=== PATIENT | female | born 1960 | race Caucasian/White ===

== ENCOUNTER 2017-04-11 10:01 | Outpatient (CLI) | payer OTHER, MEDICARE ==
[2017-04-11 18:11] LABS: BASOPHILS % (AUTO) 0.8 %; EOSINOPHILS # (AUTO) 0.2 10^3/uL (0.0-0.7); EOSINOPHILS % (AUTO) 4.3 %; HCT - HEMATOCRIT 37.4 % (37.0-47.0); HGB - HEMOGLOBIN 12.7 g/dL (12.0-16.0); LYMPHOCYTES # (AUTO) 0.5 10^3/uL (1.5-3.5); LYMPHOCYTES % (AUTO) 12.1 %; MEAN CORPUSCULAR HEMOGLOBIN 32.1 pg (27.0-31.0); MEAN CORPUSCULAR HGB CONC 33.9 g/dL (32.0-36.0); MEAN CORPUSCULAR VOLUME 94.7 fL (81.0-99.0); MEAN PLATELET VOLUME 7.8 fL (7.9-10.8); MONOCYTES # (AUTO) 0.5 10^3/uL (0.0-1.0); MONOCYTES % (AUTO) 11.3 %; NEUTROPHILS % (AUTO) 71.5 %; RED BLOOD COUNT 3.95 10^6/uL (4.20-5.40); RED CELL DISTRIBUTION WIDTH 13.4 % (12.0-15.0); UNCORRECTED WHITE BLOOD COUNT 4.1 x10^3/uL; WHITE BLOOD COUNT 4.1 x10^3/uL (4.8-10.8)
[2017-04-11 18:42] LABS: BILIRUBIN,TOTAL 0.5 mg/dL (0.2-1.0); CALCIUM 10.1 mg/dL (8.5-10.3); CREATININE 0.7 mg/dL (0.4-1.0); POTASSIUM 3.7 mmol/L (3.5-5.0); TOTAL PROTEIN 7.2 g/dL (6.7-8.2)
[2017-04-11 18:49] LABS: TOTAL T3 0.99 ng/mL (0.87-1.78)
[2017-04-11 19:01] LABS: THYROID STIMULATING HORMONE 2.26 uIU/mL (0.34-5.60)
== END 2017-04-11 10:02 | disposition home or self-care (01) ==
LOC: LAB.S 10:01
PROVIDERS: ATTEND Registered Nurse
DX: F43.23 Adjustment disorder with mixed anxiety and depressed mood (principal)
CPT/HCPCS: 36415; 80053; 82306; 82607; 84436; 84439; 84443; 84480; 84481; 84482; 85025

== ENCOUNTER 2018-01-05 12:11 | Outpatient (CLI) | payer MEDICARE, OTHER ==
--- NOTE | 2018-01-05 17:39 | XRAY Report ---
CHEST TWO VIEWS: 01/05/2018 HISTORY: Cough. COMPARISON: 06/06/2015 FINDINGS: The heart size is normal. The lungs are clear. There is no pleural fluid or pneumothorax. Surgical clips left upper abdomen. Mild thoracolumbar junction dextroscoliosis. IMPRESSION: CLEAR LUNGS. NO ACUTE FINDINGS COMPARED WITH 06/06/2015. TD: 01/05/2018 16:10
== END 2018-01-05 12:12 | disposition home or self-care (01) ==
LOC: DI 12:11
PROVIDERS: ATTEND Nurse Practitioner Family
DX: R05 Cough (principal)
CPT/HCPCS: 71046

== ENCOUNTER 2018-10-26 10:47 | Outpatient (CLI) | payer MEDICARE, OTHER ==
--- NOTE | 2018-10-26 13:05 | Mammography Report ---
Reason: BREAST LUMP IN LOWER INNER QUADRANT Procedure Date: 10/26/2018 Accession Number: [id number] / [id number] Procedure: CHELITA - Diagnostic Dig Bilat CPT Code: FULL RESULT: EXAM: Diagnostic Dig Bilat DATE: 10/26/2018 12:06 PM CLINICAL HISTORY: Breast lump in the lower inner quadrant of the right breast. Diagnostic examination. TECHNIQUE: Bilateral CC, laterally exaggerated CC, MLO and ML views are obtained. COMPARISON: 07/23/2015 through 04/22/2011. FINDINGS: The breasts demonstrate extremely dense parenchyma bilaterally, limiting the sensitivity of mammography. The area marked as palpable is partially included on the right CC view but not seen on other projections and therefore insufficiently evaluated by mammography. Additional imaging by focused right breast ultrasound is needed. No suspicious calcifications, mass or architectural distortion is identified. IMPRESSION: Incomplete examination. RECOMMENDATION: Focused right breast ultrasound for completion of the diagnostic workup of the palpable right breast finding. BIRADS CATEGORY 0 STANDARD QUALIFYING STATEMENTS: 1. This examination was not reviewed with the aid of Computer-Aided Detection (CAD). 2. A negative or benign imaging report should not delay biopsy if clinically suspicious findings are present. Consider surgical consultation if warrented. More than 5% of cancers are not identified by imaging. 3. Dense breasts may obscure an underlying neoplasm. 4. This examination was reviewed with the aid of 3D imaging (tomography).
== END 2018-10-26 10:48 | disposition home or self-care (01) ==
LOC: DI 10:47
PROVIDERS: ATTEND Internal Medicine
DX: N63.14 Unspecified lump in the right breast, lower inner quadrant (principal)
CPT/HCPCS: 77066

== ENCOUNTER 2018-11-21 10:48 | Outpatient (CLI) | payer MEDICARE, OTHER ==
--- NOTE | 2018-11-21 14:24 | Ultrasound Report ---
Reason: LUMP OF RIGHT BREAST Procedure Date: 11/21/2018 Accession Number: [id number] / [id number] Procedure: US - Breast Unilateral Limited CPT Code: FULL RESULT: EXAM: Breast Unilateral Limited DATE: 11/21/2018 11:20 AM CLINICAL HISTORY: LUMP OF RIGHT BREAST. Completion of the diagnostic workup. COMPARISON: 10/26/2018. TECHNIQUE: Targeted ultrasound was performed of the right breast in the area of clinical concern at 3:30 o'clock and 7 cm distance from the nipple. Color Doppler was employed as appropriate. FINDINGS: Normal breast tissue is identified with prominent underlying musculoskeletal chest wall 1 cm deep to the palpable area. No suspicious collection or mass is identified. IMPRESSION: Benign findings RECOMMENDATION: Recommend routine annual Screening mammography unless otherwise clinically indicated. BIRADS CATEGORY 2: Benign findings RADIA
== END 2018-11-21 10:49 | disposition home or self-care (01) ==
LOC: DI 10:48
PROVIDERS: ATTEND Internal Medicine
DX: N63.10 Unspecified lump in the right breast, unspecified quadrant (principal)
CPT/HCPCS: 76642

== ENCOUNTER 2019-11-15 10:05 | Outpatient (CLI) | payer MEDICARE, OTHER ==
--- NOTE | 2019-11-15 10:47 | XRAY Report ---
Reason: DYSPNEA ON EXCERTION Procedure Date: 11/15/2019 Accession Number: [id number] / [id number] Procedure: XR - Chest 2 View X-Ray CPT Code: 88323 Final Report FULL RESULT: EXAM: CHEST RADIOGRAPHY EXAM DATE: 11/15/2019 10:15 AM. CLINICAL HISTORY: DYSPNEA ON EXERTION. COMPARISON: CHEST 2 VIEW 01/05/2018 12:51 PM. TECHNIQUE: 2 views. FINDINGS: Lungs/Pleura: No focal opacities evident. No pleural effusion. No pneumothorax. Lungs are well expanded. Mediastinum: Heart and mediastinal contours are unremarkable. Other: None. IMPRESSION: No acute intrathoracic plain film abnormality. RADIA
== END 2019-11-15 10:06 | disposition home or self-care (01) ==
LOC: DI 10:05
PROVIDERS: ATTEND Internal Medicine
DX: R06.09 Other forms of dyspnea (principal)
CPT/HCPCS: 71046

== ENCOUNTER 2019-11-21 11:35 | Outpatient (CLI) | payer MEDICARE, OTHER | END 2019-11-21 11:36 | disposition home or self-care (01) | LOC: LAB 11:35 | PROVIDERS: ATTEND Internal Medicine | DX: R06.01 Orthopnea (principal); Z82.49 Family history of ischemic heart disease and other diseases of the circulatory system; R06.09 Other forms of dyspnea | CPT/HCPCS: 36415; 83880; 85379 ==

== ENCOUNTER 2020-06-19 11:42 | Outpatient (CLI) | payer MEDICARE, OTHER ==
[2020-06-19 14:58] LABS: BASOPHILS % (AUTO) 0.9 %; EOSINOPHILS # (AUTO) 0.2 10^3/uL (0.0-0.7); EOSINOPHILS % (AUTO) 6.1 %; HGB - HEMOGLOBIN 11.9 g/dL (12.0-16.0); LYMPHOCYTES # (AUTO) 0.6 10^3/uL (1.5-3.5); LYMPHOCYTES % (AUTO) 18.3 %; MEAN CORPUSCULAR HEMOGLOBIN 31.1 pg (27.0-31.0); MEAN CORPUSCULAR HGB CONC 31.9 g/dL (32.0-36.0); MEAN CORPUSCULAR VOLUME 97.4 fL (81.0-99.0); MEAN PLATELET VOLUME 9.1 fL (7.9-10.8); MONOCYTES # (AUTO) 0.5 10^3/uL (0.0-1.0); MONOCYTES % (AUTO) 14.3 %; NEUTROPHILS % (AUTO) 60.1 %; PLT - PLATELET COUNT 382 10^3/uL (130-450); RED BLOOD COUNT 3.83 10^6/uL (4.20-5.40); RED CELL DISTRIBUTION WIDTH 13.4 % (12.0-15.0); WHITE BLOOD COUNT 3.3 x10^3/uL (4.8-10.8)
[2020-06-19 15:17] LABS: BILIRUBIN,URINE NEGATIVE (NEGATIVE); GLUCOSE, URINE (UA) NEGATIVE (NEGATIVE); KETONES,URINE (UA) NEGATIVE (NEGATIVE); LEUKOCYTE ESTERASE, URINE NEGATIVE (NEGATIVE); NITRITE,URINE NEGATIVE (NEGATIVE); OCCULT BLOOD,URINE NEGATIVE (NEGATIVE); PROTEIN,URINE NEGATIVE (NEGATIVE); UROBILINOGEN,URINE 0.2 (NORMAL) E.U./dL (NORMAL)
[2020-06-19 15:19] LABS: CLARITY,URINE CLEAR (CLEAR)
[2020-06-19 15:38] LABS: ALBUMIN 4.1 g/dL (3.2-5.5); ALBUMIN/GLOBULIN RATIO 1.9 (1.0-2.2); ALKALINE PHOSPHATASE 24 IU/L (42-121); ALT ALANINE AMINOTRANSFERASE 39 IU/L (10-60); AST ASPARTATE AMINOTRANSFERASE 29 IU/L (10-42); BILIRUBIN,TOTAL 0.5 mg/dL (0.2-1.0); BUN - BLOOD UREA NITROGEN 16 mg/dL (6-20); CALCIUM 8.9 mg/dL (8.5-10.3); CARBON DIOXIDE - CO2 30 mmol/L (21-32); CHLORIDE 101 mmol/L (101-111); CHOL/HDL RATIO 3.1 (<4.4); CHOLESTEROL 223 mg/dL; CREATININE 0.7 mg/dL (0.4-1.0); GLUCOSE 71 mg/dL (70-100); HDL CHOLESTEROL 72 mg/dL; LDL CHOLESTEROL,CALCULATED 130 mg/dL; LDL/HDL RATIO 1.8 (<4.4); SODIUM 138 mmol/L (135-145); TOTAL PROTEIN 6.3 g/dL (6.7-8.2); VLDL CHOLESTEROL 21 mg/dL
[2020-06-19 15:42] LABS: BACTERIA,URINE Few /HPF (None Seen); RBC,URINE None Seen /HPF (0-5); SQUAMOUS EPITHELIAL CELL,UR MANY Squamous (<= Few)
== END 2020-06-19 11:43 | disposition home or self-care (01) ==
LOC: LAB.S 11:42
PROVIDERS: ATTEND Nurse Practitioner Psychiatric/Mental Health
DX: F39 Unspecified mood [affective] disorder (principal); Z79.899 Other long term (current) drug therapy
CPT/HCPCS: 36415; 80053; 80061; 81001; 83721; 84443; 85025

== ENCOUNTER 2021-02-06 11:55 | Outpatient (CLI) | payer MEDICARE, OTHER ==
[2021-02-10 12:47] LABS: IMMUNOGLOBULIN A 85 mg/dL (47-310); IMMUNOGLOBULIN G 558 mg/dL (600-1640); IMMUNOGLOBULIN M 32 mg/dL (50-300)
[2021-02-11 13:37] LABS: MYCOPLASMA PNEUMONIAE IGG 1.03; MYCOPLASMA PNEUMONIAE IGM 36 U/mL
[2021-02-13 18:01] LABS: 18 KD (IGG) BAND NON-REACTIVE; 23 KD (IGG) BAND NON-REACTIVE; 23 KD (IGM) BLOT NON-REACTIVE; 28 KD (IGG) BAND NON-REACTIVE; 30 KD (IGG) BAND NON-REACTIVE; 39 KD (IGG) BAND NON-REACTIVE; 39 KD (IGM) BLOT NON-REACTIVE; 41 KD (IGG) BAND NON-REACTIVE; 41 KD (IGM) BLOT NON-REACTIVE; 45 KD (IGG) BAND NON-REACTIVE; 58 KD (IGG) BAND NON-REACTIVE; 66 KD (IGG) BAND NON-REACTIVE; 93 KD (IGG) BAND NON-REACTIVE
== END 2021-02-06 11:56 | disposition home or self-care (01) ==
LOC: LAB.S 11:55
PROVIDERS: ATTEND Family Medicine
DX: F41.9 Anxiety disorder, unspecified (principal); G89.29 Other chronic pain; F33.9 Major depressive disorder, recurrent, unspecified; G35 Multiple sclerosis; M48.02 Spinal stenosis, cervical region; G47.9 Sleep disorder, unspecified; M99.01 Segmental and somatic dysfunction of cervical region; Z77.120 Contact with and (suspected) exposure to mold (toxic); R09.82 Postnasal drip; J30.2 Other seasonal allergic rhinitis; I10 Essential (primary) hypertension
CPT/HCPCS: 36415; 81599; 82784; 82785; 83520; 86160; 86611; 86617; 86618; 86631; 86632; 86663; 86664; 86665; 86666; 86738; 86753; 86777; 86778; 86790

== ENCOUNTER 2021-09-18 12:39 | Outpatient (CLI) | payer MEDICARE, OTHER ==
--- NOTE | 2021-09-18 16:17 | DEXA Report ---
PROCEDURE: Dexa Spine and/or Hip INDICATIONS: POST MENOPAUSAL TECHNIQUE: Dual energy x-ray absorptiometry (DXA) was performed on a [employer] System. Regions measur ed are the AP Spine, femoral neck, and if needed forearm. COMPARISON: None. FINDINGS: Lumbar Spine: Bone Mineral Density 0.889 g/cm/cm,T score -2.4, osteopenia Left Hip: Bone Mineral Density 0.552 g/cm/cm,T score -3.6, osteoporosis Left Femoral Neck: Bone Mineral Density 0.636 g/cm/cm, T score -2.9, osteoporosis (T score greater or equal to -1.0: NORMAL) (T score from -1.1 to -2.4: OSTEOPENIA) (T score less than or equal to -2.5 to: OSTEOPOROSIS) Impression: Decreased bone mineral density within the osteoporotic range at the left hip and left fem oral neck and within the osteopenic range at the lumbar spine. Patients with diagnosis of osteoporosis or osteopenia should have regular bone mineral density assess ment. For those eligible for Medicare, routine testing is allowed once every 2 years. Testing frequ ency can be increased for patients who have rapidly progressing disease or for those who are receivin g medical therapy to restore bone mass. Reviewed by: Tres Carpio MD on 09/18/2021 4:15 PM PST Approved by: Tres Carpio MD on 09/18/2021 4:15 PM PST Station ID: [id number]
== END 2021-09-18 12:40 | disposition home or self-care (01) ==
LOC: DI 12:39
PROVIDERS: ATTEND Internal Medicine
DX: M81.0 Age-related osteoporosis without current pathological fracture (principal); Z78.0 Asymptomatic menopausal state

== ENCOUNTER 2021-11-14 11:01 | Emergency (ER) | payer MEDICARE, OTHER ==
--- OUTSIDE RECORDS SUMMARY | 2021-11-14 11:22 | EXTERNAL MEDICAL SUMMARY RPT | Continuity of Care Document ---
:1960 Author Organization [facility] Address [address] [place] [address] Phone Allergies No information. Encounters No information. Medications No information. Problems date description facility [id number] Shortness of Breath [facility] [id number] Chest Pain [facility] Results No information.
[2021-11-14 11:39] LABS: BASOPHILS % (AUTO) 0.3 %; EOSINOPHILS # (AUTO) 0.1 10^3/uL (0.0-0.7); EOSINOPHILS % (AUTO) 1.2 %; HCT - HEMATOCRIT 42.4 % (37.0-47.0); HGB - HEMOGLOBIN 14.4 g/dL (12.0-16.0); LYMPHOCYTES # (AUTO) 1.2 10^3/uL (1.5-3.5); MEAN CORPUSCULAR HEMOGLOBIN 31.9 pg (27.0-31.0); MEAN CORPUSCULAR VOLUME 93.8 fL (81.0-99.0); MEAN PLATELET VOLUME 8.7 fL (7.9-10.8); MONOCYTES # (AUTO) 0.9 10^3/uL (0.0-1.0); MONOCYTES % (AUTO) 9.7 %; NEUTROPHILS # (AUTO) 7.4 10^3/uL (1.5-6.6); NEUTROPHILS % (AUTO) 76.3 %; PLT - PLATELET COUNT 416 10^3/uL (130-450); RED BLOOD COUNT 4.52 10^6/uL (4.20-5.40); RED CELL DISTRIBUTION WIDTH 13.1 % (12.0-15.0); WHITE BLOOD COUNT 9.7 x10^3/uL (4.8-10.8)
--- NOTE | 2021-11-14 11:42 | XRAY Report ---
PROCEDURE: Chest 1 View X-Ray INDICATIONS: Chest pain TECHNIQUE: One view of the chest was acquired. COMPARISON: 03/16/2020, 1116, 01/05/2018 FINDINGS: Surgical changes and devices: Left upper quadrant postoperative clips are seen. Lungs and pleura: On the semiupright images, no large pneumothorax or large pleural effusions can be seen. No focal infiltrates are seen. Lungs are clear, yet hyperexpanded. Mediastinum: Mediastinal contours appear normal. Heart size is normal. Bones and chest wall: No suspicious bony lesions. Age-appropriate degenerative changes are seen. Overlying soft tissues appear unremarkable. IMPRESSION: Hyperexpanded lungs are seen, without an acute cardiopulmonary abnormality seen. Postoperative and degenerative changes are seen. Reviewed by: Javed Zarate MD on 11/14/2021 10:41 AM [facility] Approved by: Javed Zarate MD on 11/14/2021 10:41 AM [facility] Station ID: [id number]
[2021-11-14 12:19] LABS: ALBUMIN 4.9 g/dL (3.2-5.5); ALBUMIN/GLOBULIN RATIO 1.4 (1.0-2.2); BILIRUBIN,TOTAL 0.5 mg/dL (0.2-1.0); CALCIUM 10.2 mg/dL (8.5-10.3); CREATININE 0.8 mg/dL (0.4-1.0); POTASSIUM 4.4 mmol/L (3.5-5.0); TOTAL PROTEIN 8.3 g/dL (6.7-8.2)
[2021-11-14] MEDS ORDERED: HYDROmorphone 1 MG/ML CARPUJECT IVP STA (12:24)
--- NOTE | 2021-11-14 12:24 | ED Physician Documentation ---
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 Previously was maintained on narcotics but weaned herself off about a month ago but pain is now uncontrolled, more neck than chest. It is similar to but worse than her usual s ann marie stenosis pain. She has been evaluated by a spinal surgeon in the past who declined to operate because of her underlying multiple sclerosis. Review of Systems Constitutional: denies: Fever, Chills Cardiac: reports: Chest pain / pressure (From her Howell's esophagus and nutcracker esophagus). denies: Palpitations Respiratory: denies: Dyspnea, Cough PD PAST MEDICAL HISTORY - Past Medical History Past Medical History: Yes Cardiovascular: None Respiratory: Asthma Endocrine/Autoimmune: None GI: GERD : None HEENT: Other Psych: None Musculoskeletal: Chronic back pain Derm: None - Past Surgical History Past Surgical History: Yes Ortho: Arthroscopic surgery - Present Medications Home Medications: Ambulatory Orders Medication Instructions Recorded Confirmed DULoxetine [Cymbalta] 60 mg PO DAILY 07/31/13 07/31/13 Estradiol 0.05 mg Patch [Vivelle] 1 each TOP 07/31/13 07/31/13 Fingolimod HCl [Gilenya] 0.5 mg PO DAILY 07/31/13 07/31/13 Lorazepam 0.5 mg PO HS 07/31/13 07/31/13 Pregabalin [Lyrica] 25 mg PO BID 07/31/13 07/31/13 Tizanidine HCl 4 mg PO BID 07/31/13 07/31/13 fentaNYL 25 MCG PATCH [Duragesic] 25 mcg TOP 07/31/13 07/31/13 oxyCODONE [Roxicodone] 5 mg PO Q6-8H PRN 07/31/13 07/31/13 HYDROcod/ACETAM 5/325 [Geneva 5/325] 1 - 2 tab PO Q6H PRN #20 tablet 11/14/21 fentaNYL 50 MCG PATCH [Duragesic 50 mcg TOP Q3D #3 patch 11/14/21 50mcg patch] - Allergies Allergies/Adverse Reactions: Allergies Allergy/AdvReac Type Severity Reaction Status Date / Time latex Allergy Severe Hives Verified 11/14/21 11:11 Sulfa (Sulfonamide Allergy Severe Hives Verified 11/14/21 11:11 Antibiotics) - Social History Does the pt smoke?: Yes Smoking Status: Current every day smoker Does the pt drink ETOH?: Yes Does the pt have substance abuse?: No - Immunizations Immunizations are current?: Yes PD ED PE NORMAL - Vitals Vital signs reviewed: Yes - General General: Alert and oriented X 3, No acute distress - HEENT HEENT: PERRL, EOMI - Neck Neck: Supple, no meningeal sign, No bony TTP - Cardiac Cardiac: RRR, No murmur - Respiratory Respiratory: No respiratory distress, Clear bilaterally - Abdomen Abdomen: Non tender - Back Back: No CVA TTP, No spinal TTP - Derm Derm: Normal color, Warm and dry - Extremities Extremities: No edema, No calf tenderness / cord - Neuro Neuro: Alert and oriented X 3, Normal speech - Psych Psych: Normal mood, Normal affect Results - Vitals Vitals: Vital Signs - 24 hr 11/14/21 11/14/21 11/14/21 11:11 11:27 11:45 Temperature 37.0 C 36.5 C Heart Rate 122 H 122 H 93 Respiratory 18 18 16 Rate Blood Pressure 156/114 H 156/114 H 147/89 H O2 Saturation 100 100 100 11/14/21 12:15 Temperature Heart Rate 105 H Respiratory 18 Rate Blood Pressure 132/67 H O2 Saturation 100 Oxygen O2 Source Room air - EKG (time done) 1119 Rate: Rate (enter#) (120) Rhythm: Sinus tachycardia [place]: Normal Intervals: Normal [place] QRS: Normal Ischemia: Non specific changes. No: ST elevation c/w ischemia, ST depression - Labs Labs: Laboratory Tests 11/14/21 11/14/21 11/14/21 11:33 11:33 11:33 WBC 9.7 RBC 4.52 Hgb 14.4 Hct 42.4 MCV 93.8 MCH 31.9 H MCHC 34.0 RDW 13.1 Plt Count 416 MPV 8.7 Neut # (Auto) 7.4 H Lymph # (Auto) 1.2 L Henry # (Auto) 0.9 Eos # (Auto) 0.1 Baso # (Auto) 0.0 Absolute Nucleated RBC 0.00 Nucleated RBC % 0.0 Sodium 139 Potassium 4.4 Chloride 100 L Carbon Dioxide 24 Anion Gap 15.0 H BUN 17 Creatinine 0.8 Estimated GFR (MDRD) 73 L Glucose 145 H Calcium 10.2 Total Bilirubin 0.5 AST 46 H ALT 63 H Alkaline Phosphatase 43 Troponin I High Sens 4.7 Total Protein 8.3 H Albumin 4.9 Globulin 3.4 Albumin/Globulin Ratio 1.4 Lipase 73 H PD MEDICAL DECISION MAKING - ED course ED course: 61-year-old woman with an exacerbation of chronic pain and needs some relief until she can see her doctor on Tuesday. Usual life-threatening differentials for neck and chest pain were considered but she is clear that this is an exacerbation of her chronic pain and there is no finding of ischemia or widened mediastinum etc. to suggest something worse. Departure - Departure Disposition: Home, Self Care Clinical Impression: Chronic neck pain, Multiple sclerosis, Nutcracker esophagus, Spinal stenosis Condition: Good Record reviewed to determine appropriate education?: Yes Instructions: ED Chronic Pain Management Prescriptions: fentaNYL 50 MCG PATCH [Duragesic 50mcg patch] 50 mcg TOP Q3D #3 patch HYDROcod/ACETAM 5/325 [Geneva 5/325] 1 - 2 tab PO Q6H PRN #20 tablet PRN Reason: Pain Comments: I sent your prescriptions electronically to the [facility] pharmacy at the corner of [address] here in [place]. Follow-up with your doctor on Tuesday for further evaluation and treatment. Return if worse. I am prescribing a short course of narcotic pain medication for you. These are potentially dangerous and addictive medications that should be used carefully. These medications may constipate you. Take an zzkh-bcx-rxntjfo stool softener (docusate) twice daily with plenty of water while taking these medications. If you go 24 hours without a bowel movement, take pvys-wtx-vmnkjvr miralax, per package instructions. Do not drink or drive while taking these medications. If you received narcotic or sedating medications while in the emergency department, do not drive for 24 hours. Store this medication in a safe, secure place and out of reach of children. It is a violation of federal law to give or sell this medication to another person or to use in a manner other than prescribed. The ED will not refill narcotic prescriptions, including prescriptions lost or stolen. To dispose of unwanted medications: 1. [facility] at [address] in [place] has a medication drop box. They accept prescription medications (in pill form) Tuesday through Tuesday 9:00 a.m. to 5:00 p.m. 2. The [facility] accepts prescription medications (in pill form only) for disposal year round. Call for more information. 3. Contact the [facility] for the next [facility] sponsored prescription drug collection event. , [phone], or [phone]; Note that many narcotic pain relievers also contain Tylenol/acetaminophen. Please ensure that your total dose of acetaminophen from all sources does not exceed 3 g (3000 mg) per day.
[2021-11-14 12:35] VITALS: BP 128/107
== END 2021-11-14 13:52 | disposition home or self-care (01) ==
LOC: ED 11:01
DX: K22.4 Dyskinesia of esophagus (principal); M48.02 Spinal stenosis, cervical region; G35 Multiple sclerosis; F17.200 Nicotine dependence, unspecified, uncomplicated
CPT/HCPCS: 36415; 71045; 80053; 83690; 84484; 85025; 93005; 96374; 99283; 99284; J1170

== ENCOUNTER 2022-04-27 10:28 | Emergency (ER) | payer MEDICARE, OTHER ==
--- NOTE | 2022-04-27 11:13 | XRAY Report ---
PROCEDURE: Chest 1 View X-Ray INDICATIONS: Chest Pain TECHNIQUE: One view of the chest was acquired. COMPARISON: 11/14/2019 to. FINDINGS: Surgical changes and devices: Surgical clips are noted in left upper quadrant abdomen.. Lungs and pleura: No pleural effusions or pneumothorax. Lungs are clear. Mediastinum: Mediastinal contours appear normal. Heart size is normal. Bones and chest wall: No suspicious bony lesions. Overlying soft tissues appear unremarkable. IMPRESSION: No acute cardiopulmonary pathology. Reviewed by: Tomy Barton MD on 04/27/2022 11:12 AM PDT Approved by: Tomy Barton MD on 04/27/2022 11:12 AM PDT Station ID: [id number]
[2022-04-27 11:20] LABS: BASOPHILS % (AUTO) 0.3 %; EOSINOPHILS # (AUTO) 0.2 10^3/uL (0.0-0.7); EOSINOPHILS % (AUTO) 2.2 %; HCT - HEMATOCRIT 46.1 % (37.0-47.0); HGB - HEMOGLOBIN 15.7 g/dL (12.0-16.0); LYMPHOCYTES # (AUTO) 1.3 10^3/uL (1.5-3.5); LYMPHOCYTES % (AUTO) 17.4 %; MEAN CORPUSCULAR HEMOGLOBIN 31.5 pg (27.0-31.0); MEAN CORPUSCULAR HGB CONC 34.1 g/dL (32.0-36.0); MEAN CORPUSCULAR VOLUME 92.4 fL (81.0-99.0); MEAN PLATELET VOLUME 8.4 fL (7.9-10.8); MONOCYTES # (AUTO) 0.7 10^3/uL (0.0-1.0); MONOCYTES % (AUTO) 8.6 %; NEUTROPHILS # (AUTO) 5.5 10^3/uL (1.5-6.6); NEUTROPHILS % (AUTO) 71.1 %; PLT - PLATELET COUNT 488 10^3/uL (130-450); RED BLOOD COUNT 4.99 10^6/uL (4.20-5.40); RED CELL DISTRIBUTION WIDTH 13.4 % (12.0-15.0); WHITE BLOOD COUNT 7.7 x10^3/uL (4.8-10.8)
[2022-04-27 11:34] LABS: ALBUMIN/GLOBULIN RATIO 1.4 (1.0-2.2); BILIRUBIN,TOTAL 0.6 mg/dL (0.2-1.0); CALCIUM 10.3 mg/dL (8.5-10.3); CREATININE 0.7 mg/dL (0.4-1.0); POTASSIUM 3.9 mmol/L (3.5-5.0); TOTAL PROTEIN 8.7 g/dL (6.7-8.2)
[2022-04-27] MEDS ORDERED: IPRATROPIUM/ALBUTEROL 3 ML NEB INH STA (11:37)
[2022-04-27] MEDS ORDERED: SODIUM CHLORIDE 0.9% 1,000 ML IV STA (11:37)
[2022-04-27] MEDS ORDERED: HYDROmorphone 1 MG/ML CARPUJECT IVP STA (11:37)
[2022-04-27] MEDS ORDERED: KETOROLAC 15 MG/ML VIAL IVP STA (11:38)
--- NOTE | 2022-04-27 11:39 | ED Physician Documentation ---
PD HPI DYSPNEA - Stated complaint Stated Complaint: CHEST PX/SOA - Chief complaint Chief Complaint: Cardiac - History obtained from History obtained from: Patient - Additional information Additional information: 62-year-old woman with history of failed Cisco fundoplication's and multiple sclerosis. She has a history of remote tobacco abuse and still smokes only very occasionally, a few times a year. She presents with an upper respiratory infection having started about a week ago with worsening cough productive of foamy white mucus, chest pain especially with coughing, low-grade fevers up to 1 01. She is short of breath and not sleeping well. She denies pedal edema or calf pain. She has no formal diagnosis of COPD or emphysema. Her granddaughter was sick with a respiratory illness recently. She has had several negative COVID tests at home. Review of Systems Ten Systems: 10 systems reviewed and negative Constitutional: reports: Fever, Chills, Fatigue Nose: reports: Rhinorrhea / runny nose Cardiac: reports: Chest pain / pressure Respiratory: reports: Dyspnea, Cough PD PAST MEDICAL HISTORY - Past Medical History Cardiovascular: None Respiratory: Asthma Endocrine/Autoimmune: None GI: GERD : None HEENT: Other Psych: None Musculoskeletal: Chronic back pain Derm: None - Past Surgical History Past Surgical History: Yes Ortho: Arthroscopic surgery - Present Medications Home Medications: Ambulatory Orders Medication Instructions Recorded Confirmed DULoxetine [Cymbalta] 60 mg PO DAILY 07/31/13 07/31/13 Estradiol 0.05 mg Patch [Vivelle] 1 each TOP 07/31/13 07/31/13 Fingolimod HCl [Gilenya] 0.5 mg PO DAILY 07/31/13 07/31/13 Lorazepam 0.5 mg PO HS 07/31/13 07/31/13 Pregabalin [Lyrica] 25 mg PO BID 07/31/13 07/31/13 Tizanidine HCl 4 mg PO BID 07/31/13 07/31/13 fentaNYL 25 MCG PATCH [Duragesic] 25 mcg TOP 07/31/13 07/31/13 oxyCODONE [Roxicodone] 5 mg PO Q6-8H PRN 07/31/13 07/31/13 HYDROcod/ACETAM 5/325 [Kenmare 5/325] 1 - 2 tab PO Q6H PRN #20 tablet 11/14/21 fentaNYL 50 MCG PATCH [Duragesic 50 mcg TOP Q3D #3 patch 11/14/21 50mcg patch] Albuterol Sulf [Ventolin Hfa 1 - 2 puffs INH Q4HR PRN #1 gm 04/27/22 Inhaler] Benzonatate [Tessalon] 200 mg PO QID PRN #20 cap 04/27/22 Doxycycline Hyclate 100 mg PO BID #14 cap 04/27/22 HYDROcod/ACETAM 5/325 [Kenmare 5/325] 1 - 2 tab PO Q6H PRN #15 tablet 04/27/22 - Allergies Allergies/Adverse Reactions: Allergies Allergy/AdvReac Type Severity Reaction Status Date / Time latex Allergy Severe Hives Verified 04/27/22 10:47 Sulfa (Sulfonamide Allergy Severe Hives Verified 04/27/22 10:47 Antibiotics) - Social History Does the pt smoke?: Yes Smoking Status: Current every day smoker Does the pt drink ETOH?: Yes Does the pt have substance abuse?: No - Immunizations Immunizations are current?: Yes PD ED PE NORMAL - Vitals Vital signs reviewed: Yes - General General: Alert and oriented X 3, Other (She is thin) - HEENT HEENT: PERRL, EOMI - Neck Neck: Supple, no meningeal sign, No bony TTP - Cardiac Cardiac: No murmur, Other (Tachycardic but regular without murmur) - Respiratory Respiratory: Other (Diminished especially at the bases, mildly tachypneic but speaking in full sentences.) - Abdomen Abdomen: Non tender - Back Back: No CVA TTP, No spinal TTP - Derm Derm: Normal color, Warm and dry - Extremities Extremities: No edema, No calf tenderness / cord - Neuro Neuro: Alert and oriented X 3, Normal speech Results - Vitals Vitals: Vital Signs - 24 hr 04/27/22 04/27/22 04/27/22 10:41 10:47 11:17 Temperature 36.4 C L Heart Rate 121 H 124 H 113 H Respiratory 28 H 25 H 17 Rate Blood Pressure 122/83 H 197/98 H 176/93 H O2 Saturation 97 98 97 04/27/22 04/27/22 04/27/22 11:30 12:00 12:09 Temperature Heart Rate 116 H 114 H 118 H Respiratory 23 13 22 Rate Blood Pressure 176/93 H 165/106 H O2 Saturation 95 100 04/27/22 04/27/22 12:30 13:00 Temperature 36.5 C Heart Rate 117 H 100 Respiratory 20 20 Rate Blood Pressure 153/89 H 140/88 H O2 Saturation 97 98 Oxygen O2 Source Room air - EKG (time done) 1038 Rate: Rate (enter#) (123) Rhythm: Sinus tachycardia Alexander: Normal Intervals: Normal CT QRS: Normal Ischemia: Non specific changes. No: ST elevation c/w ischemia - Labs Labs: Laboratory Tests 04/27/22 04/27/22 04/27/22 11:06 11:08 11:08 WBC 7.7 RBC 4.99 Hgb 15.7 Hct 46.1 MCV 92.4 MCH 31.5 H MCHC 34.1 RDW 13.4 Plt Count 488 H MPV 8.4 Neut # (Auto) 5.5 Lymph # (Auto) 1.3 L Armstrong # (Auto) 0.7 Eos # (Auto) 0.2 Baso # (Auto) 0.0 Absolute Nucleated RBC 0.00 Nucleated RBC % 0.0 D-Dimer Sodium 139 Potassium 3.9 Chloride 101 Carbon Dioxide 25 Anion Gap 13.0 BUN 13 Creatinine 0.7 Estimated GFR (MDRD) 85 L Glucose 111 H Calcium 10.3 Total Bilirubin 0.6 AST 35 ALT 41 Alkaline Phosphatase 60 Troponin I High Sens Total Protein 8.7 H Albumin 5.0 Globulin 3.7 Albumin/Globulin Ratio 1.4 Lipase 45 Nasal Adenovirus (PCR) NOT DETECTED Nasal B. parapertussis DNA (PCR) NOT DETECTED Nasal Coronavir 229E PCR NOT DETECTED Nasal Coronavir HKU1 PCR NOT DETECTED Nasal Coronavir NL63 PCR NOT DETECTED Nasal Coronavir OC43 PCR NOT DETECTED Nasal Enterovir/Rhinovir PCR DETECTED A Nasal Influenza B PCR NOT DETECTED Nasal Influenza A PCR NOT DETECTED Nasal Parainfluen 1 PCR NOT DETECTED Nasal Parainfluen 2 PCR NOT DETECTED Nasal Parainfluen 3 PCR NOT DETECTED Nasal Parainfluen 4 PCR NOT DETECTED Nasal RSV (PCR) NOT DETECTED Nasal B.pertussis DNA PCR NOT DETECTED Nasal C.pneumoniae (PCR) NOT DETECTED Viraj Human Metapneumo PCR NOT DETECTED Nasal M.pneumoniae (PCR) NOT DETECTED Nasal SARS-CoV-2 (PCR) NOT DETECTED 04/27/22 04/27/22 11:08 11:20 WBC RBC Hgb Hct MCV MCH MCHC RDW Plt Count MPV Neut # (Auto) Lymph # (Auto) Armstrong # (Auto) Eos # (Auto) Baso # (Auto) Absolute Nucleated RBC Nucleated RBC % D-Dimer < 200.0 L Sodium Potassium Chloride Carbon Dioxide Anion Gap BUN Creatinine Estimated GFR (MDRD) Glucose Calcium Total Bilirubin AST ALT Alkaline Phosphatase Troponin I High Sens 3.9 Total Protein Albumin Globulin Albumin/Globulin Ratio Lipase Nasal Adenovirus (PCR) Nasal B. parapertussis DNA (PCR) Nasal Coronavir 229E PCR Nasal Coronavir HKU1 PCR Nasal Coronavir NL63 PCR Nasal Coronavir OC43 PCR Nasal Enterovir/Rhinovir PCR Nasal Influenza B PCR Nasal Influenza A PCR Nasal Parainfluen 1 PCR Nasal Parainfluen 2 PCR Nasal Parainfluen 3 PCR Nasal Parainfluen 4 PCR Nasal RSV (PCR) Nasal B.pertussis DNA PCR Nasal C.pneumoniae (PCR) Viraj Human Metapneumo PCR Nasal M.pneumoniae (PCR) Nasal SARS-CoV-2 (PCR) PD MEDICAL DECISION MAKING - ED course ED course: 62-year-old woman presents with bronchitis type illness, positive for rhinovirus. No formal diagnosis of COPD but her chest x-ray seems consistent with that to me given the hyperinflation albeit the radiologist felt it was fairly normal. She was feeling much better after symptomatic treatment here. Departure - Departure Disposition: 01 Home, Self Care Clinical Impression: Bronchitis, Rhinovirus, Dyspnea Condition: Good Record reviewed to determine appropriate education?: Yes Instructions: ED Bronchitis Asthmatic, ED Viral Syndrome Prescriptions: Albuterol Sulf [Ventolin Hfa Inhaler] 1 - 2 puffs INH Q4HR PRN #1 gm PRN Reason: Shortness Of Air/Wheezing Doxycycline Hyclate 100 mg PO BID #14 cap HYDROcod/ACETAM 5/325 [Kenmare 5/325] 1 - 2 tab PO Q6H PRN #15 tablet PRN Reason: Pain Benzonatate [Tessalon] 200 mg PO QID PRN #20 cap PRN Reason: Cough Comments: I sent your prescription electronically to the [facility] pharmacy at the corner of [address] here in [place]. As discussed, the only positive diagnostic test was a bio fire panel, which came up positive for enterovirus/rhinovirus. We did screening test for heart disease and blood clots which were negative. Return for new or worsening symptoms. Follow-up with your doctor in a week if not better. I am prescribing a short course of narcotic pain medication for you. These are potentially dangerous and addictive medications that should be used carefully. These medications may constipate you. Take an flke-muy-jcpowoj stool softener (docusate) twice daily with plenty of water while taking these medications. If you go 24 hours without a bowel movement, take bkbe-tdi-ypswiza miralax, per package instructions. Do not drink or drive while taking these medications. If you received narcotic or sedating medications while in the emergency department, do not drive for 24 hours. Store this medication in a safe, secure place and out of reach of children. It is a violation of federal law to give or sell this medication to another person or to use in a manner other than prescribed. The ED will not refill narcotic prescriptions, including prescriptions lost or stolen. To dispose of unwanted medications: 1. [facility] at [address] in [place] has a medication drop box. They accept prescription medications (in pill form) Tuesday through Tuesday 9:00 a.m. to 5:00 p.m. 2. The [facility] Police Department accepts prescription medications (in pill form only) for disposal year round. Call for more information. 3. Contact the [facility] for the next [facility] sponsored prescription drug collection event. , [phone], or [phone]; Note that many narcotic pain relievers also contain Tylenol/acetaminophen. Please ensure that your total dose of acetaminophen from all sources does not exceed 3 g (3000 mg) per day. Discharge Date/Time: 04/27/22 13:41
[2022-04-27] MEDS: DEXAMETHASONE 10 MG/ML VIAL IVP STA ×2 (12:09→12:10)
[2022-04-27 12:10] LABS: B. PARAPERTUSSIS- RESP PCR PAN NOT DETECTED; B. PERTUSSIS- RESP PCR PANEL NOT DETECTED; C. PNEUMONIAE- RESP PCR PANEL NOT DETECTED; CORONAVIRUS 229E-RESP PCR NOT DETECTED; CORONAVIRUS HKU1-RESP PCR NOT DETECTED; CORONAVIRUS NL63-RESP PCR NOT DETECTED; CORONAVIRUS OC43-RESP PCR NOT DETECTED; HUMAN METAPNEUMOVIRUS NOT DETECTED; INFLUENZA A- RESP PCR PANEL NOT DETECTED; INFLUENZA B - RESP PCR PANEL NOT DETECTED; M. PNEUMONIAE- RESP PCR PANEL NOT DETECTED; PARAINFLUENZA VIRUS 1 NOT DETECTED; PARAINFLUENZA VIRUS 2 NOT DETECTED; PARAINFLUENZA VIRUS 3 NOT DETECTED; PARAINFLUENZA VIRUS 4 NOT DETECTED; RHINOVIRUS/ENTEROVIRUS DETECTED; RSV- RESP PCR PANEL NOT DETECTED; SARS-CoV-2 -RESP PCR PANEL NOT DETECTED
[2022-04-27 13:40] VITALS: BP 140/88
== END 2022-04-27 13:41 | disposition home or self-care (01) ==
LOC: ED 10:28
DX: J20.6 Acute bronchitis due to rhinovirus (principal); F17.200 Nicotine dependence, unspecified, uncomplicated; Z20.822 Contact with and (suspected) exposure to COVID-19
CPT/HCPCS: 36415; 71045; 80053; 83690; 84484; 85025; 85379; 87633; 93005; 94640; 94664; 96374; 99284; J1170

== ENCOUNTER 2022-06-17 14:00 | Outpatient (CLI) | payer MEDICARE, OTHER ==
[2022-06-19 07:09] LABS: ADENOVIRUS F 40/41 Not Detected (Not Detected); ASTROVIRUS Not Detected (Not Detected); C DIFFICILE TOXIN A/B Not Detected (Not Detected); CAMPYLOBACTER Not Detected (Not Detected); CRYPTOSPORIDIUM Not Detected (Not Detected); CYCLOSPORA CAYETANENSIS Not Detected (Not Detected); ENTAMOEBA HISTOLYTICA Not Detected (Not Detected); ENTEROAGGREGATIVE E COLI Not Detected (Not Detected); ENTEROPATHOGENIC E COLI Not Detected (Not Detected); ENTEROTOXIGENIC E COLI Not Detected (Not Detected); GIARDIA LAMBLIA Not Detected (Not Detected); NOROVIRUS GI/GII Not Detected (Not Detected); PLESIOMONAS SHIGELLOIDES Not Detected (Not Detected); ROTAVIRUS A Not Detected (Not Detected); SALMONELLA Not Detected (Not Detected); SAPOVIRUS Not Detected (Not Detected); SHIGA-TOXIN-PRODUCING E COLI Not Detected (Not Detected); SHIGELLA/ENTEROINVASIVE E COLI Not Detected (Not Detected); VIBRIO Not Detected (Not Detected); VIBRIO CHOLERAE Not Detected (Not Detected); YERSINIA ENTEROCOLITICA Not Detected (Not Detected)
== END 2022-06-17 23:59 | disposition home or self-care (01) ==
LOC: LAB.R 14:00
PROVIDERS: ATTEND Internal Medicine Gastroenterology
DX: K52.9 Noninfective gastroenteritis and colitis, unspecified (principal); D84.821 Immunodeficiency due to drugs; G35 Multiple sclerosis; R53.83 Other fatigue
CPT/HCPCS: 36415; 80053; 81001; 81003; 85025; 87086; 87507

== ENCOUNTER 2024-01-27 07:00 | Outpatient (CLI) | payer MEDICARE, OTHER ==
--- NOTE | 2024-01-27 20:49 | XRAY Report ---
PROCEDURE: Chest 2V INDICATIONS: ACUTE COUGH TECHNIQUE: 2 views of the chest were acquired. COMPARISON: None. FINDINGS: Surgical changes and devices: Several surgical clips in the left upper quadrant of the abdomen. Lungs and pleura: Background of hyperlucency and coarse interstitial markings. Hazy left lower lung alveolar opacity. Pleural tethering. No significant pleural effusion or thorax. Mediastinum: Mediastinal contours appear normal. Heart size is normal. Bones and chest wall: No suspicious bony lesions. Overlying soft tissues appear unremarkable. IMPRESSION: Background emphysematous change. Left lower lobe findings suggesting small pneumonia. No pleural effusion. Reviewed by: Milla Howell MD on 01/27/2024 8:48 PM PDT Approved by: Milla Howell MD on 01/27/2024 8:48 PM PDT Station ID: [id number]
== END 2024-01-27 23:59 | disposition home or self-care (01) ==
LOC: DI.S 07:00
PROVIDERS: ATTEND Emergency Medicine
DX: R05.1 Acute cough (principal); R91.8 Other nonspecific abnormal finding of lung field

== ENCOUNTER 2024-03-16 09:59 | Outpatient (CLI) | payer MEDICARE, OTHER | END 2024-03-16 10:00 | disposition critical access hospital (66) | LOC: EMS 09:59 | DX: R06.02 Shortness of breath (principal); R07.1 Chest pain on breathing; M54.2 Cervicalgia; R50.9 Fever, unspecified; R06.2 Wheezing; R00.0 Tachycardia, unspecified | CPT/HCPCS: A0425; A0427 ==

== ENCOUNTER 2024-03-16 10:34 | Inpatient (IN) | payer MEDICARE, OTHER ==
--- NOTE | 2024-03-16 10:41 | ED Physician Documentation ---
PD HPI DYSPNEA - Stated complaint Stated Complaint: SOA - History obtained from History obtained from: Patient, EMS - Additional information Additional information: 64-year-old woman with chronic pain, multiple sclerosis and COPD presents with worsening shortness of breath over the last day. On arrival history is limited due to respiratory distress and patient states she wants to be intubated. She confirms that she is DNR but does want intubation. She has received albuterol prior to arrival and refuses steroids even with reassurance that she would be sedated noting that her "allergy" to steroids is agitation. PD PAST MEDICAL HISTORY - Past Medical History Cardiovascular: None Respiratory: Asthma Endocrine/Autoimmune: None GI: GERD : None HEENT: Other Psych: None Musculoskeletal: Chronic back pain Derm: None - Past Surgical History Past Surgical History: Yes Ortho: Arthroscopic surgery - Present Medications Home Medications: Ambulatory Orders Medication Instructions Recorded Confirmed DULoxetine [Cymbalta] 60 mg PO DAILY 07/31/13 07/31/13 Estradiol 0.05 mg Patch [Vivelle] 1 each TOP 07/31/13 07/31/13 Fingolimod HCl [Gilenya] 0.5 mg PO DAILY 07/31/13 07/31/13 Lorazepam 0.5 mg PO HS 07/31/13 07/31/13 Pregabalin [Lyrica] 25 mg PO BID 07/31/13 07/31/13 Tizanidine HCl 4 mg PO BID 07/31/13 07/31/13 fentaNYL 25 MCG PATCH [Duragesic] 25 mcg TOP 07/31/13 07/31/13 oxyCODONE [Roxicodone] 5 mg PO Q6-8H PRN 07/31/13 07/31/13 HYDROcod/ACETAM 5/325 [[place] 5/325] 1 - 2 tab PO Q6H PRN #20 tablet 11/14/21 fentaNYL 50 MCG PATCH [Duragesic 50 mcg TOP Q3D #3 patch 11/14/21 50mcg patch] Albuterol Sulf [Ventolin Hfa 1 - 2 puffs INH Q4HR PRN #1 gm 04/27/22 Inhaler] Benzonatate [Tessalon] 200 mg PO QID PRN #20 cap 04/27/22 Doxycycline Hyclate 100 mg PO BID #14 cap 04/27/22 HYDROcod/ACETAM 5/325 [[place] 5/325] 1 - 2 tab PO Q6H PRN #15 tablet 04/27/22 - Allergies Allergies/Adverse Reactions: Allergies Allergy/AdvReac Type Severity Reaction Status Date / Time latex Allergy Severe Hives Verified 03/16/24 12:59 Sulfa (Sulfonamide Allergy Severe Hives Verified 03/16/24 12:59 Antibiotics) - Social History Does the pt smoke?: Yes Smoking Status: Current every day smoker Does the pt drink ETOH?: Yes Does the pt have substance abuse?: No - Immunizations Immunizations are current?: Yes PD ED PE NORMAL - Vitals Vital signs reviewed: Yes - General General: Alert and oriented X 3, Other (She appears fatigued, she is tachypneic and only able to speak very short sentences.) - Neck Neck: Supple, no meningeal sign, No bony TTP - Cardiac Cardiac: No murmur, Other (Quite tachycardic) - Respiratory Respiratory: Other (Absent breath sounds at the right base with respiratory distress) - Abdomen Abdomen: Non tender - Extremities Extremities: No edema, No calf tenderness / cord - Neuro Neuro: Alert and oriented X 3 Eye Opening: To Voice Motor: Obeys Commands Verbal: Oriented GCS Score: 14 Results - Vitals Vitals: Vital Signs - 24 hr 03/16/24 03/16/24 03/16/24 10:41 11:15 11:20 Temperature 36.5 C Heart Rate 155 H 142 H 143 H Respiratory 40 H 17 16 Rate Blood Pressure 140/125 H 99/67 97/57 L O2 Saturation 100 99 100 03/16/24 03/16/24 03/16/24 11:25 11:26 11:30 Temperature Heart Rate 142 H 142 H 142 H Respiratory 16 16 Rate Blood Pressure 107/65 112/68 O2 Saturation 100 100 03/16/24 03/16/24 03/16/24 11:35 11:40 11:45 Temperature Heart Rate 144 H 142 H 143 H Respiratory 16 16 16 Rate Blood Pressure 127/74 127/81 H 138/83 H O2 Saturation 100 99 97 03/16/24 03/16/24 03/16/24 11:50 11:55 12:00 Temperature Heart Rate 143 H 144 H 142 H Respiratory 16 16 16 Rate Blood Pressure 140/86 H 138/84 H 124/77 O2 Saturation 97 96 96 08/03/16/24 03/16/24 12:05 12:10 12:15 Temperature Heart Rate 140 H 140 H 139 H Respiratory 16 16 16 Rate Blood Pressure 118/74 104/77 102/70 O2 Saturation 96 96 96 03/16/24 03/16/24 03/16/24 12:20 12:25 12:30 Temperature Heart Rate 137 H 136 H 135 H Respiratory 16 16 16 Rate Blood Pressure 96/73 94/68 90/66 O2 Saturation 97 97 97 03/16/24 03/16/24 03/16/24 12:35 12:40 12:45 Temperature Heart Rate 134 H 133 H 132 H Respiratory 16 16 16 Rate Blood Pressure 90/66 87/64 L 86/68 L O2 Saturation 97 97 97 03/16/24 03/16/24 12:50 12:55 Temperature Heart Rate 133 H 132 H Respiratory 21 19 Rate Blood Pressure 90/64 84/64 L O2 Saturation 97 97 Oxygen O2 Source Mechanical ventilator - EKG (time done) 1120 EKG releavant findings:: EKG personally interpreted by author of this note. Relevant findings are: Rate: Rate (enter#) (142) Rhythm: Sinus tachycardia [place]: RAD QRS: Low voltage Ischemia: Normal ST segments - Labs Labs: Laboratory Tests 03/16/24 03/16/24 03/16/24 10:50 10:50 10:50 WBC 9.0 RBC 3.89 L Hgb 12.1 Hct 36.9 L MCV 94.9 MCH 31.1 H MCHC 32.8 RDW 13.6 Plt Count 356 MPV 8.9 Neut # (Auto) 7.2 H Lymph # (Auto) 1.2 L Clarke # (Auto) 0.5 Eos # (Auto) 0.0 Baso # (Auto) 0.1 Absolute Nucleated RBC 0.00 Nucleated RBC % 0.0 Manual Slide Review Indicated RBC Morph Micro Appear 1+ ANISOCYTOSIS Bld Gas Analysis Time Sample Site ABG pH ABG pCO2 ABG pO2 ABG HCO3 ABG Total CO2 ABG O2 Saturation ABG Base Excess Yohannes Test VBG pH VBG pCO2 VBG pO2 VBG HCO3 VBG Total CO2 VBG O2 Saturation VBG Base Excess Respiration Rate O2 Delivery Device Vent Mode FiO2 Tidal Volume PEEP Pressure Support Vent Sodium 136 Potassium 3.3 L Chloride 100 L Carbon Dioxide 25 Anion Gap 11.0 BUN 23 H Creatinine 0.7 Estimated GFR (MDRD) 85 L Glucose 176 H Lactic Acid Calcium 8.3 L Phosphorus 3.2 Magnesium 1.7 Total Bilirubin 0.4 AST 26 ALT 18 Alkaline Phosphatase 31 L Troponin I High Sens 316.6 H* Total Protein 6.4 Albumin 3.8 Globulin 2.6 Albumin/Globulin Ratio 1.5 Nasal Adenovirus (PCR) Nasal B. parapertussis DNA (PCR) Nasal Coronavir 229E PCR Nasal Coronavir HKU1 PCR Nasal Coronavir NL63 PCR Nasal Coronavir OC43 PCR Nasal Enterovir/Rhinovir PCR Nasal Influenza B PCR Nasal Influenza A PCR Nasal Parainfluen 1 PCR Nasal Parainfluen 2 PCR Nasal Parainfluen 3 PCR Nasal Parainfluen 4 PCR Nasal RSV (PCR) Nasal B.pertussis DNA PCR Nasal C.pneumoniae (PCR) Viraj Human Metapneumo PCR Nasal M.pneumoniae (PCR) Nasal SARS-CoV-2 (PCR) 03/16/24 03/16/24 03/16/24 10:50 10:50 11:07 WBC RBC Hgb Hct MCV MCH MCHC RDW Plt Count MPV Neut # (Auto) Lymph # (Auto) Clarke # (Auto) Eos # (Auto) Baso # (Auto) Absolute Nucleated RBC Nucleated RBC % Manual Slide Review RBC Morph Micro Appear Bld Gas Analysis Time Sample Site ABG pH ABG pCO2 ABG pO2 ABG HCO3 ABG Total CO2 ABG O2 Saturation ABG Base Excess Yohannes Test VBG pH 7.236 L VBG pCO2 51.6 H VBG pO2 32.9 VBG HCO3 21.4 L VBG Total CO2 23.0 L VBG O2 Saturation 54.1 L VBG Base Excess -6.3 L Respiration Rate O2 Delivery Device Vent Mode FiO2 Tidal Volume PEEP Pressure Support Vent Sodium Potassium Chloride Carbon Dioxide Anion Gap BUN Creatinine Estimated GFR (MDRD) Glucose Lactic Acid < 0.2 L Calcium Phosphorus Magnesium Total Bilirubin AST ALT Alkaline Phosphatase Troponin I High Sens Total Protein Albumin Globulin Albumin/Globulin Ratio Nasal Adenovirus (PCR) NOT DETECTED Nasal B. parapertussis DNA (PCR) NOT DETECTED Nasal Coronavir 229E PCR NOT DETECTED Nasal Coronavir HKU1 PCR NOT DETECTED Nasal Coronavir NL63 PCR NOT DETECTED Nasal Coronavir OC43 PCR NOT DETECTED Nasal Enterovir/Rhinovir PCR DETECTED A Nasal Influenza B PCR NOT DETECTED Nasal Influenza A PCR NOT DETECTED Nasal Parainfluen 1 PCR NOT DETECTED Nasal Parainfluen 2 PCR NOT DETECTED Nasal Parainfluen 3 PCR NOT DETECTED Nasal Parainfluen 4 PCR NOT DETECTED Nasal RSV (PCR) NOT DETECTED Nasal B.pertussis DNA PCR NOT DETECTED Nasal C.pneumoniae (PCR) NOT DETECTED Viraj Human Metapneumo PCR NOT DETECTED Nasal M.pneumoniae (PCR) NOT DETECTED Nasal SARS-CoV-2 (PCR) NOT DETECTED 03/16/24 11:45 WBC RBC Hgb Hct MCV MCH MCHC RDW Plt Count MPV Neut # (Auto) Lymph # (Auto) Clarke # (Auto) Eos # (Auto) Baso # (Auto) Absolute Nucleated RBC Nucleated RBC % Manual Slide Review RBC Morph Micro Appear Bld Gas Analysis Time 1145 Sample Site RIGHT RADIAL ABG pH 7.28 L ABG pCO2 45 ABG pO2 98 ABG HCO3 20.6 L ABG Total CO2 22.0 ABG O2 Saturation 96 ABG Base Excess -5.9 L Yohannes Test POSITIVE VBG pH VBG pCO2 VBG pO2 VBG HCO3 VBG Total CO2 VBG O2 Saturation VBG Base Excess Respiration Rate 16 O2 Delivery Device MECH VENT Vent Mode SIMV FiO2 50.00 Tidal Volume 400 PEEP 5 Pressure Support Vent 8 Sodium Potassium Chloride Carbon Dioxide Anion Gap BUN Creatinine Estimated GFR (MDRD) Glucose Lactic Acid Calcium Phosphorus Magnesium Total Bilirubin AST ALT Alkaline Phosphatase Troponin I High Sens Total Protein Albumin Globulin Albumin/Globulin Ratio Nasal Adenovirus (PCR) Nasal B. parapertussis DNA (PCR) Nasal Coronavir 229E PCR Nasal Coronavir HKU1 PCR Nasal Coronavir NL63 PCR Nasal Coronavir OC43 PCR Nasal Enterovir/Rhinovir PCR Nasal Influenza B PCR Nasal Influenza A PCR Nasal Parainfluen 1 PCR Nasal Parainfluen 2 PCR Nasal Parainfluen 3 PCR Nasal Parainfluen 4 PCR Nasal RSV (PCR) Nasal B.pertussis DNA PCR Nasal C.pneumoniae (PCR) Viraj Human Metapneumo PCR Nasal M.pneumoniae (PCR) Nasal SARS-CoV-2 (PCR) - Rads (name of study) Single view chest x-ray showing bilateral infiltrates right worse than left. With endotracheal tube 1.6 cm above the sheryl Relevant Findings:: Final report received, EMP independent interpretation of test Procedures - Intubation - Major Provider: Emergency physician Medications: Etomidate (20mg ivp), Rocuronium (50mg ivp) Blade: Glidescope Tube: Size-enter number (7.5), Cuffed Route: Oral Confirmation: Direct visualization, Bilateral breath sounds, End tidal CO2, Pulse ox Complications: No compications PD Medical Decision Making - ED course ED course: Further history from the . She was admitted with RSV pneumonia to a hospital in [place] while on vacation in April of last year. 10 days on the ventilator. She became very agitated on steroids and required restraints and he feels that made her delirious. Also more recent pneumonia and is on Gilenya for MS and has chronic pain issues on chronic narcotics. 64-year-old woman with COPD and MS presents with respiratory failure, she appears ill and is tachycardic and tachypneic. She requested intubation but admits she is DNR and under no circumstances wants steroids due to side effects even if she is sedated. She was intubated and started on Rocephin and Zithromax after blood cultures. Intubation was technically easy. Subsequently CBC was unremarkable. CMP mild hyperkalemia. Modest elevation of troponin which is likely from demand from illness as opposed to a primary cardiac insult. She was positive for rhinovirus/enterovirus. Spoke with Dr. Barrera quijano for ICU admission at approximately 12:35 PM. - Critical Care Time(min): 45 Time Includes: Direct patient care, Review records, Reassess patient, Document care, Coordinate care, Medical consult, Family consult for tx dec Data interpretation: Labs, Pulse ox, ABG, CXR Procedures included in critical care time: Peripheral IV Procedures excluded from critical care time: Intubation, EKG Departure - Departure Disposition: 66 [facility] DC/Xfer Clinical Impression: Rhinovirus infection Respiratory failure Qualifiers: Chronicity: acute Respiratory failure complication: unspecified whether with hypoxia or hypercapnia Qualified Code(s): J96.00 - Acute respiratory failure, unspecified whether with hypoxia or hypercapnia Pneumonia Qualifiers: Pneumonia type: due to unspecified organism Laterality: right Lung location: lower lobe of lung Qualified Code(s): J18.9 - Pneumonia, unspecified organism Condition: Critical Forms: PCP List
[2024-03-16] MEDS: ROCURONIUM 50 MG/5 ML VIAL IVP STA (10:44)
[2024-03-16] MEDS: ETOMIDATE 40 MG/20 ML VIAL IVP STA (10:47)
[2024-03-16 11:00] LABS: BASOPHILS # (AUTO) 0.1 10^3/uL (0.0-0.1); BASOPHILS % (AUTO) 0.7 %; EOSINOPHILS % (AUTO) 0.1 %; HCT - HEMATOCRIT 36.9 % (37.0-47.0); HGB - HEMOGLOBIN 12.1 g/dL (12.0-16.0); LYMPHOCYTES # (AUTO) 1.2 10^3/uL (1.5-3.5); LYMPHOCYTES % (AUTO) 13.7 %; MEAN CORPUSCULAR HEMOGLOBIN 31.1 pg (27.0-31.0); MEAN CORPUSCULAR HGB CONC 32.8 g/dL (32.0-36.0); MEAN CORPUSCULAR VOLUME 94.9 fL (81.0-99.0); MEAN PLATELET VOLUME 8.9 fL (7.9-10.8); MONOCYTES # (AUTO) 0.5 10^3/uL (0.0-1.0); MONOCYTES % (AUTO) 5.8 %; NEUTROPHILS # (AUTO) 7.2 10^3/uL (1.5-6.6); NEUTROPHILS % (AUTO) 79.1 %; PLT - PLATELET COUNT 356 10^3/uL (130-450); RED BLOOD COUNT 3.89 10^6/uL (4.20-5.40); RED CELL DISTRIBUTION WIDTH 13.6 % (12.0-15.0)
[2024-03-16 11:01] LABS: VBG BASE EXCESS -6.3 mmol/L (-2 - +2); VBG HCO3 21.4 mmol/L (23-28); VBG OXYGEN SATURATION 54.1 % (60-80); VBG PCO2 51.6 mmHg (41-51); VBG PH 7.236 (7.31-7.41); VBG PO2 32.9 mmHg (25-47)
[2024-03-16] MEDS: SODIUM CHLORIDE 0.9% 1,000 ML IV STA ×3 (11:04→14:05)
[2024-03-16 11:08] LABS: SLIDE REVIEW? Indicated
[2024-03-16 11:16] LABS: ALBUMIN 3.8 g/dL (3.2-5.5); ALBUMIN/GLOBULIN RATIO 1.5 (1.0-2.2); BILIRUBIN,TOTAL 0.4 mg/dL (0.2-1.0); CALCIUM 8.3 mg/dL (8.5-10.3); CREATININE 0.7 mg/dL (0.6-1.3); MAGNESIUM 1.7 mg/dL (1.7-2.3); PHOSPHORUS 3.2 mg/dL (2.5-5.0); POTASSIUM 3.3 mmol/L (3.5-4.5); TOTAL PROTEIN 6.4 g/dL (6.4-8.9)
[2024-03-16 11:30] LABS: RBC MORPHOLOGY (MULTIPLE) 1+ ANISOCYTOSIS (NORMAL)
[2024-03-16] MEDS: PROPOFOL 1000 MG/100 ML 1,000 MG/100 ML BOTTLE IV STA (11:41)
[2024-03-16] MEDS: cefTRIAXone 1 GM VIAL IVP STA (11:47)
[2024-03-16 11:56] LABS: ABG HCO3 20.6 mmol/L (22.0-26.0); ABG PCO2 45 mmHg (34-45); ABG PH 7.28 (7.35-7.45); ABG PO2 98 mmHg (80-100)
[2024-03-16 11:57] LABS: ABG BASE EXCESS -5.9 mmol/L (-2.0-3.0); ABG MODE OF VENTILATION SIMV; ABG OXYGEN SATURATION 96 % (94-98); ABG RESPIRATORY RATE 16 b/min; ALLEN TEST POSITIVE
[2024-03-16] MEDS: AZITHROMYCIN INJ 500 MG in SODIUM CHLORIDE 0.9% 250 ML IV STA (12:00)
[2024-03-16 12:10] LABS: B. PARAPERTUSSIS- RESP PCR PAN NOT DETECTED; B. PERTUSSIS- RESP PCR PANEL NOT DETECTED; C. PNEUMONIAE- RESP PCR PANEL NOT DETECTED; CORONAVIRUS 229E-RESP PCR NOT DETECTED; CORONAVIRUS HKU1-RESP PCR NOT DETECTED; CORONAVIRUS NL63-RESP PCR NOT DETECTED; CORONAVIRUS OC43-RESP PCR NOT DETECTED; HUMAN METAPNEUMOVIRUS NOT DETECTED; INFLUENZA A- RESP PCR PANEL NOT DETECTED; INFLUENZA B - RESP PCR PANEL NOT DETECTED; M. PNEUMONIAE- RESP PCR PANEL NOT DETECTED; PARAINFLUENZA VIRUS 1 NOT DETECTED; PARAINFLUENZA VIRUS 2 NOT DETECTED; PARAINFLUENZA VIRUS 3 NOT DETECTED; PARAINFLUENZA VIRUS 4 NOT DETECTED; RHINOVIRUS/ENTEROVIRUS DETECTED; RSV- RESP PCR PANEL NOT DETECTED; SARS-CoV-2 -RESP PCR PANEL NOT DETECTED
--- NOTE | 2024-03-16 12:58 | XRAY Report ---
PROCEDURE: Chest 1V INDICATIONS: soa TECHNIQUE: One view of the chest was acquired. COMPARISON: None FINDINGS: Surgical changes and devices: ET tube 1.6 cm above the sheryl Lungs and pleura: There is hyperinflation and chronic interstitial changes present. Bilateral patchy pulmonary infiltrate Mediastinum: Mediastinal contours appear normal. Heart size is normal. Bones and chest wall: No suspicious bony lesions. Overlying soft tissues appear unremarkable. IMPRESSION: Mild bilateral patchy pulmonary infiltrate. ET tube 1.6 cm above the sheryl Reviewed by: Jatinder Javier MD on 03/16/2024 11:57 AM [facility] Approved by: Jatinder Javier MD on 03/16/2024 11:57 AM [facility] Station ID: [id number]
[2024-03-16] MEDS ORDERED: SODIUM CHLORIDE FLUSH 0.9% 10 ML SYRINGE IVP PRN (13:11)
[2024-03-16] MEDS ORDERED: DEXMEDETOMIDINE 400 MCG/100 ML 100 ML IV PRN (13:39)
--- NOTE | 2024-03-16 13:48 | HISTORY & PHYSICAL EXAMINATION ---
Chief Complaint - Chief Complaint Chief Complaint: Shortness of breath History of Present Illness - Admitted From Admitted From:: Emergency Room - History Obtained From Records Reviewed: Yes History obtained from: Emergency room physician Dr. Jatinder Silverman - History of Present Illness HPI Comment/Other: Michelle Encarnacion is a 64-year-old woman who presented to the emergency room with a chief complaint of shortness of breath. She has a past medical history significant for chronic pain, multiple sclerosis and chronic obstructive pulmonary disease. She reports that her dyspnea is worsened over the last 24 hours. Patient arrived by EMS service and was in significant respiratory distress upon arrival. She reported she wanted to be intubated and was intubated by emergency room physician. Per ER report she is DO NOT RESUSCITATE but does want to be intubated. Also per ER report she wants to have bronchodilators but does not wish to have any type of steroid at this time. Chest x-ray performed in the emergency room revealed bilateral opacities in the lower lobe. Troponin was elevated at 316.6. Lactic acid was 0.2 and white blood cell count was 9K. Patient received ceftriaxone and azithromycin in the emergency room. History - Past Medical History Cardiovascular: reports: None Respiratory: reports: Asthma, COPD Neuro: reports: Multiple sclerosis Endocrine/Autoimmune: reports: None GI: reports: GERD : reports: None HEENT: reports: Other Psych: reports: None Musculoskeletal: reports: Chronic back pain Derm: reports: None MRSA Hx?: No - Past Surgical History Ortho: reports: Arthroscopic surgery Meds/Allgy - Home Medications Home Medications: Ambulatory Orders Medication Instructions Recorded Confirmed Estradiol 0.05 mg Patch [Vivelle] 1 each TOP Q7D 07/31/13 03/17/24 Fingolimod HCl [Gilenya] 0.5 mg PO DAILY 07/31/13 03/17/24 Tizanidine HCl 4 mg PO QID 07/31/13 03/17/24 Albuterol Sulf [Ventolin Hfa 1 - 2 puffs INH Q4HR PRN #1 gm 04/27/22 03/16/24 Inhaler] Fluticasone Propionate 2 puffs INH BID 03/16/24 03/16/24 [Fluticasone Propionate Hfa] HYDROmorphone [Dilaudid] 2 mg PO QID 03/16/24 03/16/24 Losartan [Cozaar] 1 tab PO DAILY 03/16/24 03/16/24 Metoprolol Succinate [Toprol Xl] 12.5 mg PO DAILY 03/16/24 03/16/24 Pregabalin 1 cap PO BID 03/16/24 03/16/24 Progesterone, Micronized 1 cap PO DAILY 03/16/24 03/16/24 [Prometrium] QUEtiapine [SEROquel] 250 mg PO HS 03/16/24 03/16/24 Tiotropium Br/Olodaterol HCl 2 puffs INH DAILY 03/16/24 03/16/24 [Stiolto Respimat Inhaler (60)] fentaNYL 12 MCG PATCH [Duragesic 1 patch TOP Q72H 03/17/24 03/17/24 12mcg patch] - Allergies Allergies/Adverse Reactions: Allergies Allergy/AdvReac Type Severity Reaction Status Date / Time latex Allergy Severe Hives Verified 03/16/24 12:59 Sulfa (Sulfonamide Allergy Severe Hives Verified 03/16/24 12:59 Antibiotics) Review of Systems - Constitutional Constitutional: reports: Other (Unable to obtain review of systems because patient is sedated and intubated.) Exam - Vital Signs Vital Signs: Vital Signs x48h Temp Pulse Resp BP Pulse Ox 03/16/24 13:05 130 H 14 80/61 L 98 03/16/24 13:00 129 H 18 84/60 L 98 03/16/24 12:55 132 H 19 84/64 L 97 03/16/24 12:50 133 H 21 90/64 97 03/16/24 12:45 132 H 16 86/68 L 97 03/16/24 12:40 133 H 16 87/64 L 97 03/16/24 12:35 134 H 16 90/66 97 03/16/24 12:30 135 H 16 90/66 97 03/16/24 12:25 136 H 16 94/68 97 03/16/24 12:20 137 H 16 96/73 97 03/16/24 12:15 139 H 16 102/70 96 03/16/24 12:10 140 H 16 104/77 96 03/16/24 12:05 140 H 16 118/74 96 03/16/24 12:00 142 H 16 124/77 96 03/16/24 11:55 144 H 16 138/84 H 96 03/16/24 11:50 143 H 16 140/86 H 97 03/16/24 11:45 143 H 16 138/83 H 97 03/16/24 11:40 142 H 16 127/81 H 99 03/16/24 11:35 144 H 16 127/74 100 03/16/24 11:30 142 H 16 112/68 100 03/16/24 11:26 142 H 03/16/24 11:25 142 H 16 107/65 100 03/16/24 11:20 143 H 16 97/57 L 100 03/16/24 11:15 142 H 17 99/67 99 03/16/24 10:41 36.5 C 155 H 40 H 140/125 H 100 - Physical Exam General Appearance: positive: No acute distress, Other (Sedated and intubated) Eyes Bilateral: positive: Conjunctivae nml, No scleral icterus Neck: positive: Thyroid nml, No JVD Respiratory: positive: Other (Good air exchange in all lung olivares no wheezing no crackles.) Cardiovascular: positive: Other (Positive S1-S2 no extra heart sounds.) Abdomen: positive: Other (Soft nontender nondistended positive bowel sound) Skin: positive: No rash Extremities: positive: No pedal edema Conclusion/Plan - Problem List (1) Acute respiratory failure with hypoxemia Conclusion/Plan: Michelle Encarnacion presented to the emergency room in respiratory distress. Initial arterial blood gas revealed a pH of 7.24, pCO2 52 and serum bicarbonate of 21. She was intubated in the emergency room and is now on a propofol drip. Patient is currently critically ill and requiring artificial life support with mechanical ventilation. Plan is to admit to the intensive care unit and continue mechanical ventilation until she meets extubation criteria. When she meets extubation criteria, a spontaneous breathing trial will be performed and we will consider extubation. Ventilator settings: Mode assist-control tidal volume 400 respiratory rate 12 FiO2 40% Patient currently has a life-threatening condition patient currently has a life-threatening condition requiring artificial life support mechanical ventilation. She is critically ill. Time spent reviewing chart, discussing case with emergency room physician, examining patient, reviewing labs and writing orders is 40 minutes. (2) Aspiration into airway Conclusion/Plan: Is highly likely the patient had an aspiration event over the last 24 hours. Plan is to initiate empiric antibiotic coverage with Zosyn 3.375 g every 6 hours intravenously. (3) Rhinovirus infection Conclusion/Plan: Nasal swab and viral culture consistent with rhinovirus. Continue supportive care. (4) Multiple sclerosis Conclusion/Plan: Per report multiple sclerosis is at baseline. Continue to monitor. (5) NSTEMI (non-ST elevated myocardial infarction) Conclusion/Plan: Most likely secondary to double product ischemia. Continue supportive care mechanical ventilation. Would not recommend extubation until troponin has significantly decreased. Echocardiogram has been ordered. Anticoagulation with Lovenox Goal is heart rate of 6080. Continue beta-blockers as tolerated. - Lab Results Fish Bones: 03/17/24 04:25 03/17/24 16:09
[2024-03-16] MEDS: LORazepam 2 MG/ML VIAL IVP STA (13:49)
[2024-03-16] MEDS ORDERED: PIPERACILLIN/TAZOBACTAM 3.375 GM in SODIUM CHLORIDE 0.9% MINIBAG 100 ML IV SCH (14:00)
[2024-03-16] MEDS ORDERED: IPRATROPIUM/ALBUTEROL 3 ML NEB INH SCH (14:00)
[2024-03-16] MEDS: PIPERACILLIN/TAZOBACTAM 2.25 GM in SODIUM CHLORIDE 0.9% MINIBAG 100 ML IV SCH (14:39)
[2024-03-16] MEDS: DEXMEDETOMIDINE 400 MCG in SODIUM CHLORIDE 0.9% 100ML 96 ML IV PRN (14:53)
[2024-03-16] MEDS: POTASSIUM CHLORIDE INJ 40 MEQ in SODIUM CHLORIDE 0.45% 1,000 ML IV SCH (15:15)
--- NOTE | 2024-03-16 15:56 | PHARMACY PROGRESS NOTE ---
- Best Possible Medication History Admit Date and Time: 03/16/24 1311 Processed by: Pharmacy Patient Interview: Pt unable to participate Secondary Source(s): Insurance records (PER RX INSURANCE RECORDS, PT UNABLE TO PARTICIPATE) As the person ultimately responsible for medication therapy, providers are able to order a medication from an existing home medication list in [facility] via the "Reconcile Routine" prior to Confirmation of that medication by systems support officer. Such practice is discouraged except when the physician, in their clinical judgment, deems that a medical need exists for a medication without regard to previous use.
[2024-03-16] MEDS: METOPROLOL 5 MG/5 ML VIAL IVP SCH ×3 (16:35→23:09)
[2024-03-16] MEDS: SODIUM CHLORIDE FLUSH 0.9% 10 ML SYRINGE IVP SCH (16:40)
[2024-03-16] MEDS: ENOXAPARIN 30 MG/0.3 ML SYRINGE SUBQ SCH (16:42)
[2024-03-16] MEDS: MORPHINE 10 MG/ML VIAL IVP PRN (17:45)
--- NOTE | 2024-03-16 17:45 | XRAY Report ---
PROCEDURE: Chest for Line Placement INDICATIONS: OG placement TECHNIQUE: One view of the chest was acquired. COMPARISON: Earlier on 03/16/2024 at 1124 hours. FINDINGS: Surgical changes and devices: Interval NG tube placement with its tip at least into the stomach. ET tube remains in satisfactory position. Lungs and pleura: Improved pulmonary edema. Question focal superimposed right basilar pneumonia. Mediastinum: Mediastinal contours appear normal. Heart size is normal. Bones and chest wall: No suspicious bony lesions. Overlying soft tissues appear unremarkable. IMPRESSION: 1. Lines and tubes in satisfactory position. 2. Improved pulmonary edema with questionable focal superimposed right basilar pneumonia. Progress films are recommended until clear. Reviewed by: Paulo Stapleton MD on 03/16/2024 5:44 PM PDT Approved by: Paulo Stapleton MD on 03/16/2024 5:44 PM PDT Station ID: [id number]
[2024-03-16] MEDS: LORazepam 2 MG/ML VIAL IVP PRN (18:00)
[2024-03-16] MEDS: PIPERACILLIN/TAZOBACTAM 3.375 GM in SODIUM CHLORIDE 0.9% MINIBAG 100 ML IV SCH (18:31)
[2024-03-16] MEDS: ASPIRIN CHEW 81 MG TABLET PO SCH (18:40)
[2024-03-16] MEDS: PROPOFOL 1000 MG/100 ML 1,000 MG/100 ML BOTTLE IV SCH (18:56)
[2024-03-16] MEDS ORDERED: METOPROLOL 5 MG/5 ML VIAL IVP SCH (19:00)
[2024-03-16] MEDS: IPRATROPIUM/ALBUTEROL 3 ML NEB INH SCH (20:02)
[2024-03-16] MEDS: fentaNYL 100 MCG/2 ML VIAL IVP PRN (20:47)
[2024-03-16 21:08] LABS: VBG BASE EXCESS -10.6 mmol/L (-2 - +2); VBG HCO3 15.2 mmol/L (23-28); VBG PCO2 33.5 mmHg (41-51); VBG PH 7.274 (7.31-7.41); VBG PO2 47.1 mmHg (25-47); VBG TOTAL CO2 16.2 mmol/L (24-29)
[2024-03-16] MEDS: SODIUM CHLORIDE 0.9% 500 ML IV ONE (21:39)
[2024-03-16 21:46] LABS: HCT - HEMATOCRIT 39.4 % (37.0-47.0); HGB - HEMOGLOBIN 12.4 g/dL (12.0-16.0); MEAN CORPUSCULAR HEMOGLOBIN 30.8 pg (27.0-31.0); MEAN CORPUSCULAR HGB CONC 31.5 g/dL (32.0-36.0); MEAN CORPUSCULAR VOLUME 97.8 fL (81.0-99.0); MEAN PLATELET VOLUME 9.5 fL (7.9-10.8); RED BLOOD COUNT 4.03 10^6/uL (4.20-5.40); RED CELL DISTRIBUTION WIDTH 14.1 % (12.0-15.0); WHITE BLOOD COUNT 5.5 x10^3/uL (4.8-10.8)
[2024-03-16 21:57] LABS: CALCIUM 6.9 mg/dL (8.5-10.3); CREATININE 0.6 mg/dL (0.6-1.3); MAGNESIUM 1.9 mg/dL (1.7-2.3); POTASSIUM 4.2 mmol/L (3.5-4.5)
[2024-03-16] MEDS ORDERED: DOPamine 400 MG/250 ML 400 MG/250 ML BAG IV SCH (22:00)
[2024-03-16] MEDS: SODIUM CHLORIDE 0.9% 1,000 ML IV SCH (22:29)
[2024-03-16] MEDS: methylPREDNISolone SUCCINATE 40 MG/ML VIAL IVP SCH (22:36)
[2024-03-16] MEDS: CALCIUM GLUCONATE IN NS 0.9% 2,000 MG/100 ML BAG IV ONE ×2 (23:02→23:07)
[2024-03-17] MEDS: IPRATROPIUM/ALBUTEROL 3 ML NEB INH SCH (00:46)
[2024-03-17] MEDS: SODIUM CHLORIDE 0.9% 500 ML IV ONE (04:25)
[2024-03-17 04:37] LABS: CALCIUM, IONIZED 1.06 mmol/L (1.15-1.33); VBG PH 7.371 (7.31-7.41)
[2024-03-17 04:48] LABS: HGB - HEMOGLOBIN 10.9 g/dL (12.0-16.0)
[2024-03-17 04:51] LABS: ALBUMIN 2.8 g/dL (3.2-5.5); BILIRUBIN,DIRECT 0.23 mg/dL (0.03-0.18); BILIRUBIN,TOTAL 0.5 mg/dL (0.2-1.0); CALCIUM 7.4 mg/dL (8.5-10.3); CREATININE 0.5 mg/dL (0.6-1.3); MAGNESIUM 1.6 mg/dL (1.7-2.3); PHOSPHORUS 1.4 mg/dL (2.5-5.0); POTASSIUM 3.5 mmol/L (3.5-4.5); TOTAL PROTEIN 4.6 g/dL (6.4-8.9)
[2024-03-17 04:53] LABS: HCT - HEMATOCRIT 33.3 % (37.0-47.0); MEAN CORPUSCULAR HEMOGLOBIN 30.8 pg (27.0-31.0); MEAN CORPUSCULAR HGB CONC 32.7 g/dL (32.0-36.0); MEAN CORPUSCULAR VOLUME 94.1 fL (81.0-99.0); MEAN PLATELET VOLUME 9.6 fL (7.9-10.8); RED BLOOD COUNT 3.54 10^6/uL (4.20-5.40); RED CELL DISTRIBUTION WIDTH 14.2 % (12.0-15.0); WHITE BLOOD COUNT 6.4 x10^3/uL (4.8-10.8)
[2024-03-17] MEDS: CALCIUM GLUC 1,000MG/50ML-NACL 1,000 MG/50 ML BAG IV ONE ×3 (05:52→17:29)
[2024-03-17] MEDS: MAGNESIUM SULFATE 2 GRAM 2 GM/50 ML BAG IV ONE (05:52)
[2024-03-17] MEDS: PANTOPRAZOLE 40 MG VIAL IVP SCH (06:15)
[2024-03-17] MEDS: DIGOXIN 500 MCG/2 ML AMP IVP SCH (06:28)
--- NOTE | 2024-03-17 07:29 | XRAY Report ---
PROCEDURE: Chest 1V INDICATIONS: Intubated patient with NSTEMI TECHNIQUE: One view of the chest was acquired. COMPARISON: 03/16/2024 FINDINGS: Surgical changes and devices: ET tube and NG tube in satisfactory position.. Lungs and pleura: No pleural effusions or pneumothorax. Right basilar pneumonia. Diffuse interstitia l prominence. Mediastinum: Mediastinal contours appear normal. Heart size is normal. Bones and chest wall: No suspicious bony lesions. Overlying soft tissues appear unremarkable. IMPRESSION: 1. Lines and tubes in satisfactory position. 2. Right basilar pneumonia. 3. Diffuse interstitial prominence. Reviewed by: Paulo Stapleton MD on 03/17/2024 7:28 AM PDT Approved by: Paulo Stapleton MD on 03/17/2024 7:28 AM PDT Station ID: [id number]
[2024-03-17] MEDS ORDERED: METOPROLOL 5 MG/5 ML VIAL IVP SCH (08:00)
[2024-03-17] MEDS: METOPROLOL 5 MG/5 ML VIAL IVP SCH ×3 (08:10→08:35)
[2024-03-17] MEDS: POTASSIUM PHOSPHATE 21 MMOL in SODIUM CHLORIDE 0.9% 250 ML IV ONE (08:47)
[2024-03-17] MEDS ORDERED: ENOXAPARIN 40 MG/0.4 ML SYRINGE SUBQ SCH (09:00)
[2024-03-17] MEDS: ESMOLOL 2.5 GM/250 ML BAG IV SCH (09:08)
[2024-03-17 09:11] LABS: CALCIUM, IONIZED 1.07 mmol/L (1.15-1.33); VBG PH 7.389 (7.31-7.41)
[2024-03-17 16:16] LABS: CALCIUM, IONIZED 1.05 mmol/L (1.15-1.33); VBG PH 7.396 (7.31-7.41)
[2024-03-17 16:25] LABS: POTASSIUM 4.1 mmol/L (3.5-4.5)
[2024-03-17 16:31] LABS: PHOSPHORUS 2.3 mg/dL (2.5-5.0)
[2024-03-17] MEDS ORDERED: POTASSIUM PHOSPHATE 15 MMOL in SODIUM CHLORIDE 0.9% 250 ML IV ONE (16:54)
[2024-03-17] MEDS: SODIUM PHOSPHATE 15 MMOL in SODIUM CHLORIDE 0.9% 250 ML IV ONE (17:29)
[2024-03-17] MEDS: fentaNYL 12 MCG PATCH TOP SCH (17:30)
[2024-03-17] MEDS: NITROGLYCERIN 50 MG/250 ML 50 MG/250 ML BOTTLE IV SCH (19:03)
[2024-03-17] MEDS ORDERED: methylPREDNISolone SUCCINATE 40 MG/ML VIAL IVP SCH (20:55)
--- NOTE | 2024-03-17 21:49 | PROVIDER PROGRESS NOTE ---
Assessment/Plan - Problem List (1) Acute respiratory failure with hypoxemia Assessment/Plan: Michelle Encarnacion presented to the emergency room in respiratory distress. Initial arterial blood gas revealed a pH of 7.24, pCO2 52 and serum bicarbonate of 21. She was intubated in the emergency room and is now on a propofol drip and receiving intermittent doses of fentanyl Patient is currently critically ill and requiring artificial life support with mechanical ventilation. Continue mechanical ventilation until she meets extubation criteria. When she meets extubation criteria, a spontaneous breathing trial will be performed and we will consider extubation. Ventilator settings: Mode assist-control tidal volume 400 respiratory rate 12 FiO2 40% Patient currently has a life-threatening condition patient currently has a life- threatening condition requiring artificial life support mechanical ventilation. She is critically ill. Time spent discussing case with nurses and family, examining patient, reviewing labs and writing orders is 32 minutes. (2) Aspiration into airway Conclusion/Plan: It is highly likely the patient had an aspiration event over the last 24 hours. Plan is to initiate empiric antibiotic coverage with Zosyn 3.375 g every 6 hours intravenously. Continue azithromycin 500 mg IV daily x 5 days. (3) Rhinovirus infection Conclusion/Plan: Nasal swab and viral culture consistent with rhinovirus. Continue supportive care. (4) Multiple sclerosis Conclusion/Plan: Per report multiple sclerosis is at baseline. Continue to monitor. I have requested the family to bring in Fingolimod tomorrow so she can continue this medication for her multiple sclerosis. (5) NSTEMI (non-ST elevated myocardial infarction) Conclusion/Plan: Most likely secondary to double product ischemia. Continue supportive care mechanical ventilation. Would not recommend extubation until troponin has significantly decreased. Echocardiogram has been ordered. Anticoagulation with Lovenox Goal is heart rate of 6080. Continue esmolol for rate control. (6) COPD with exacerbation Conclusion/Plan: Continue DuoNeb and Solu-Medrol 40 mg intravenously daily - Current Meds Current Meds: Current Medications Generic Name Dose Route Start Last Admin Trade Name Freq PRN Reason Stop Dose Admin Albuterol/Ipratropium 3 ml 03/17/24 00:01 03/17/24 19:10 Ipratropium/Albuterol 3 Ml Neb INH 3 ml RTQ4H JAY Administration Aspirin 81 mg 03/16/24 16:15 03/17/24 08:47 Aspirin Chew 81 Mg Tablet PO 81 mg DAILY JAY Administration Fentanyl 12.5 mcg 03/16/24 13:42 03/17/24 21:09 Fentanyl 100 Mcg/2 Ml Vial IVP 12.5 mcg Q4H PRN Administration PAIN 5-7 Fentanyl 1 patch 03/17/24 17:00 03/17/24 17:30 Fentanyl 12 Mcg Patch TOP 1 patch Q3D JAY Administration Piperacillin Sod/Tazobactam 100 mls @ 25 mls/hr 03/16/24 18:00 03/17/24 17:30 Sod 3.375 gm/ Sodium Chloride IV 25 mls/hr 0200,1000,1800 JAY Administration Propofol 1,000 mg in 100 mls @ 2.58 mls/hr 03/16/24 19:00 03/17/24 15:40 Diprivan IV 30 mcg/kg/min .[id number] JAY 7.74 mls/hr Administration Protocol 10 MCG/KG/MIN Esmolol HCl 2.5 gm in 250 mls @ 13.2 mls/hr 03/17/24 09:00 03/17/24 19:03 Brevibloc IV 0.3 mg/kg/min .[id number] JAY 79.2 mls/hr Administration Protocol 0.05 MG/KG/MIN Nitroglycerin 50 mg in 250 mls @ 1.5 mls/hr 03/17/24 19:00 03/17/24 21:04 Nitroglycerin IV 20 mcg/min .Q72H JAY 6 mls/hr Titration Protocol 5 MCG/MIN Lorazepam 0.5 mg 03/16/24 17:33 03/16/24 22:27 Lorazepam 2 Mg/Ml Vial IVP 0.5 mg Q2H PRN Administration Anxiety Methylprednisolone 40 mg 03/16/24 22:16 03/17/24 08:47 Methylprednisolone Succinate 40 Mg/Ml Vial IVP 40 mg DAILY JAY Administration Morphine Sulfate 2 mg 03/16/24 17:31 03/16/24 17:45 Morphine 10 Mg/Ml Vial IVP 2 mg Q2H PRN Administration PAIN 5-7 Pantoprazole Sodium 40 mg 03/17/24 07:00 03/17/24 06:15 Pantoprazole 40 Mg Vial IVP 40 mg QDAC JAY Administration Sodium Chloride 10 ml 03/16/24 17:00 03/17/24 17:30 Sodium Chloride Flush 0.9% 10 Ml Syringe IVP 10 ml 0100,0900,1700 JAY Administration - Lab Result Fish Bone Diagrams: 03/17/24 04:25 03/17/24 16:09 - Additional Planning My Orders: My Active Orders 03/16/24 22:16 methylPREDNISolone SUCCINATE [SOLU-Medrol (40MG VIAL)] 40 mg IVP DAILY 03/17/24 00:01 Ipratropium/Albuterol [Duoneb] 3 ml INH RTQ4H 03/17/24 07:00 Pantoprazole [Protonix] 40 mg IVP QDAC 03/17/24 08:00 Echo Transthoracic Complete [ECHO] Routine 03/17/24 09:00 Esmolol [Brevibloc] 2.5 gm in 250 ml IV 0.05 mg/kg/min 03/17/24 16:43 NonViolent Restraint(s) Q24H 03/17/24 17:00 fentaNYL 12 MCG PATCH [Duragesic] 1 patch TOP Q3D 03/17/24 18:13 Tube Feeding [RC] Q4H 03/17/24 19:00 Nitroglycerin 50 mg/250 ml [Nitroglycerin] 50 mg in 250 ml IV 5 mcg/min 03/17/24 21:00 Enoxaparin [Lovenox] 40 mg SUBQ BID Pregabalin [Lyrica] 25 mg PO BID 03/18/24 09:00 Patient Own Med 1 each NG DAILY Subjective - Subjective Patient Reports: Other (Sedated and intubated. Patient continues to follow commands with not sedated. She remains on mechanical ventilation for respiratory support.) Objective Vital Signs: Vital Signs - 24 hr 03/16/24 03/16/24 03/16/24 21:59 22:03 23:00 Temperature Heart Rate 107 H Heart Rate [ 104 H 102 H Monitoring electrodes] Respiratory 21 24 Rate Blood Pressure Blood Pressure 91/66 86/58 L [Left Brachial artery] O2 Saturation 99 99 03/17/24 03/17/24 03/17/24 00:00 00:51 00:53 Temperature 36.7 C Heart Rate 101 H 102 H Heart Rate [ 104 H Monitoring electrodes] Respiratory 27 H 26 H Rate Blood Pressure Blood Pressure 91/64 [Left Brachial artery] O2 Saturation 99 03/17/24 03/17/24 03/17/24 01:00 02:00 02:54 Temperature Heart Rate 98 Heart Rate [ 97 98 Monitoring electrodes] Respiratory 20 22 Rate Blood Pressure Blood Pressure 94/62 92/59 L [Left Brachial artery] O2 Saturation 100 100 03/17/24 03/17/24 03/17/24 03:00 04:00 04:40 Temperature 36.6 C Heart Rate 128 H Heart Rate [ 127 H 128 H Monitoring electrodes] Respiratory 24 22 Rate Blood Pressure Blood Pressure 101/68 101/62 [Left Brachial artery] O2 Saturation 100 100 03/17/24 03/17/24 03/17/24 05:00 06:00 06:28 Temperature 36.5 C Heart Rate 132 H Heart Rate [ 132 H 131 H Monitoring electrodes] Respiratory 22 21 Rate Blood Pressure Blood Pressure 96/62 107/67 [Left Brachial artery] O2 Saturation 100 100 03/17/24 03/17/24 03/17/24 06:47 07:00 07:07 Temperature Heart Rate 124 H Heart Rate [ 126 H 124 H Monitoring electrodes] Respiratory 24 Rate Blood Pressure Blood Pressure 105/64 [Left Brachial artery] O2 Saturation 100 03/17/24 03/17/24 03/17/24 08:00 08:10 08:15 Temperature 37.4 C Heart Rate Heart Rate [ 130 H 129 H 111 H Monitoring electrodes] Respiratory 18 22 22 Rate Blood Pressure 105/65 Blood Pressure 105/65 105/66 107/66 [Left Brachial artery] O2 Saturation 98 99 99 03/17/24 03/17/24 03/17/24 08:20 08:25 08:30 Temperature Heart Rate Heart Rate [ 110 H 108 H 110 H Monitoring electrodes] Respiratory 20 22 19 Rate Blood Pressure 103/66 Blood Pressure 103/66 102/66 98/62 [Left Brachial artery] O2 Saturation 99 99 99 03/17/24 03/17/24 03/17/24 08:35 08:40 08:45 Temperature Heart Rate Heart Rate [ 106 H 105 H 105 H Monitoring electrodes] Respiratory 20 22 21 Rate Blood Pressure 98/62 Blood Pressure 100/63 96/62 99/64 [Left Brachial artery] O2 Saturation 99 99 99 03/17/24 03/17/24 03/17/24 08:52 09:00 10:00 Temperature Heart Rate 106 H Heart Rate [ 106 H 109 H Monitoring electrodes] Respiratory 18 20 Rate Blood Pressure Blood Pressure 96/65 101/63 [Left Brachial artery] O2 Saturation 99 98 03/17/24 03/17/24 03/17/24 10:41 11:00 11:45 Temperature Heart Rate 110 H 110 H Heart Rate [ 111 H Monitoring electrodes] Respiratory 20 Rate Blood Pressure Blood Pressure 98/65 [Left Brachial artery] O2 Saturation 99 03/17/24 03/17/24 03/17/24 12:00 12:50 12:52 Temperature Heart Rate 110 H 110 H Heart Rate [ 105 H Monitoring electrodes] Respiratory 23 24 Rate Blood Pressure Blood Pressure 106/67 [Left Brachial artery] O2 Saturation 99 03/17/24 03/17/24 03/17/24 13:00 14:00 15:00 Temperature 36.9 C Heart Rate Heart Rate [ 110 H 115 H 110 H Monitoring electrodes] Respiratory 20 22 23 Rate Blood Pressure Blood Pressure 121/75 121/75 125/78 [Left Brachial artery] O2 Saturation 98 100 99 03/17/24 03/17/24 03/17/24 15:07 16:00 17:00 Temperature Heart Rate 108 H Heart Rate [ 114 H 117 H Monitoring electrodes] Respiratory 25 H 21 Rate Blood Pressure Blood Pressure 125/77 105/66 [Left Brachial artery] O2 Saturation 98 99 03/17/24 03/17/24 03/17/24 17:38 18:00 19:00 Temperature Heart Rate 108 H Heart Rate [ 117 H 88 Monitoring electrodes] Respiratory 22 24 Rate Blood Pressure Blood Pressure 125/74 123/67 [Left Brachial artery] O2 Saturation 99 99 03/17/24 03/17/24 03/17/24 19:08 19:10 19:30 Temperature Heart Rate 94 96 Heart Rate [ 84 Monitoring electrodes] Respiratory 28 H Rate Blood Pressure Blood Pressure 113/65 [Left Brachial artery] O2 Saturation 03/17/24 03/17/24 03/17/24 20:00 20:15 20:30 Temperature Heart Rate Heart Rate [ 81 81 83 Monitoring electrodes] Respiratory 22 25 H 17 Rate Blood Pressure Blood Pressure 119/67 119/67 112/70 [Left Brachial artery] O2 Saturation 100 99 99 03/17/24 03/17/24 03/17/24 20:45 21:00 21:15 Temperature Heart Rate Heart Rate [ 81 80 80 Monitoring electrodes] Respiratory 18 28 H 27 H Rate Blood Pressure Blood Pressure 115/69 112/65 113/67 [Left Brachial artery] O2 Saturation 99 98 99 Oxygen O2 Source Mechanical ventilator I&O (Last 24 Hrs): Intake and Output Totals x24h 03/15/24 03/16/24 03/17/24 23:59 23:59 23:59 Intake Total 2593.394 3729.489 Output Total 473 782 Balance 2120.394 2947.489 General: No acute distress HEENT: Other (Endotracheal tube in good position. Trachea midline) Cardiovascular: Other (Positive S1-S2 no extra heart sounds.) Respiratory: Other (Fair air exchange in all lung olivares no wheezing no crackles. Improved when compared to yesterday.) Abdomen: Other (Soft nontender nondistended positive bowel sounds) Extremities: No cyanosis Skin: No rashes - Results Results: Laboratory Results WBC 6.4 x10^3/uL (4.8-10.8) 03/17/24 04:25 RBC 3.54 10^6/uL (4.20-5.40) L 03/17/24 04:25 Hgb 10.9 g/dL (12.0-16.0) L 03/17/24 04:25 Hct 33.3 % (37.0-47.0) L 03/17/24 04:25 MCV 94.1 fL (81.0-99.0) 03/17/24 04:25 MCH 30.8 pg (27.0-31.0) 03/17/24 04:25 MCHC 32.7 g/dL (32.0-36.0) 03/17/24 04:25 RDW 14.2 % (12.0-15.0) 03/17/24 04:25 Plt Count 315 10^3/uL (130-450) 03/17/24 04:25 MPV 9.6 fL (7.9-10.8) 03/17/24 04:25 Neut # (Auto) 7.2 10^3/uL (1.5-6.6) H 03/16/24 10:50 Lymph # (Auto) 1.2 10^3/uL (1.5-3.5) L 03/16/24 10:50 [place] # (Auto) 0.5 10^3/uL (0.0-1.0) 03/16/24 10:50 Eos # (Auto) 0.0 10^3/uL (0.0-0.7) 03/16/24 10:50 Baso # (Auto) 0.1 10^3/uL (0.0-0.1) 03/16/24 10:50 Absolute Nucleated RBC 0.00 x10^3/uL 03/16/24 10:50 Nucleated RBC % 0.0 /100WBC 03/16/24 10:50 Manual Slide Review Indicated 03/16/24 10:50 RBC Morph Micro Appear 1+ ANISOCYTOSIS (NORMAL) 03/16/24 10:50 Bld Gas Analysis Time 1145 03/16/24 11:45 Sample Site RIGHT RADIAL 03/16/24 11:45 ABG pH 7.28 (7.35-7.45) L 03/16/24 11:45 ABG pCO2 45 mmHg (34-45) 03/16/24 11:45 ABG pO2 98 mmHg (80-100) 03/16/24 11:45 ABG HCO3 20.6 mmol/L (22.0-26.0) L 03/16/24 11:45 ABG Total CO2 22.0 MMOL/L (21.0-29.0) 03/16/24 11:45 ABG O2 Saturation 96 % (94-98) 03/16/24 11:45 ABG Base Excess -5.9 mmol/L (-2.0-3.0) L 03/16/24 11:45 Yohannes Test POSITIVE 03/16/24 11:45 VBG pH 7.396 (7.31-7.41) 03/17/24 16:09 VBG pCO2 33.5 mmHg (41-51) L 03/16/24 20:59 VBG pO2 47.1 mmHg (25-47) H 03/16/24 20:59 VBG HCO3 15.2 mmol/L (23-28) L 03/16/24 20:59 VBG Total CO2 16.2 mmol/L (24-29) L 03/16/24 20:59 VBG O2 Saturation 79.0 % (60-80) 03/16/24 20:59 VBG Base Excess -10.6 mmol/L (-2 - +2) L 03/16/24 20:59 Ionized Calcium 1.05 mmol/L (1.15-1.33) L 03/17/24 16:09 Respiration Rate 16 b/min 03/16/24 11:45 O2 Delivery Device MECH VENT 03/16/24 11:45 Vent Mode SIMV 03/16/24 11:45 FiO2 50.00 03/16/24 11:45 Tidal Volume 400 mL 03/16/24 11:45 PEEP 5 cmH2O 03/16/24 11:45 Pressure Support Vent 8 cmH2O 03/16/24 11:45 Sodium 140 mmol/L (135-145) 03/17/24 04:25 Potassium 4.1 mmol/L (3.5-4.5) 03/17/24 16:09 Chloride 112 mmol/L (101-111) H 03/17/24 04:25 Carbon Dioxide 19 mmol/L (21-32) L 03/17/24 04:25 Anion Gap 9.0 (6-13) 03/17/24 04:25 BUN 22 mg/dL (6-20) H 03/17/24 04:25 Creatinine 0.5 mg/dL (0.6-1.3) L 03/17/24 04:25 Estimated GFR (MDRD) 125 (>89) 03/17/24 04:25 Glucose 117 mg/dL (74-104) H 03/17/24 04:25 Lactic Acid 1.1 mmol/L (0.5-2.2) 03/17/24 09:01 Calcium 7.4 mg/dL (8.5-10.3) L 03/17/24 04:25 Phosphorus 2.3 mg/dL (2.5-5.0) L 03/17/24 16:09 Magnesium 2.0 mg/dL (1.7-2.3) 03/17/24 16:09 Total Bilirubin 0.5 mg/dL (0.2-1.0) 03/17/24 04:25 Direct Bilirubin 0.23 mg/dL (0.03-0.18) H 03/17/24 04:25 AST 384 IU/L (10-42) H 03/17/24 04:25 ALT 238 IU/L (10-60) H 03/17/24 04:25 Alkaline Phosphatase 23 IU/L (42-121) L 03/17/24 04:25 Troponin I High Sens 1171.7 ng/L (2.3-14.8) H* 03/17/24 12:43 Total Protein 4.6 g/dL (6.4-8.9) L 03/17/24 04:25 Albumin 2.8 g/dL (3.2-5.5) L 03/17/24 04:25 Globulin 1.8 g/dL (2.1-4.2) L 03/17/24 04:25 Albumin/Globulin Ratio 1.5 (1.0-2.2) 03/16/24 10:50 Nasal Adenovirus (PCR) NOT DETECTED 03/16/24 11:07 Nasal B. parapertussis DNA (PCR) NOT DETECTED 03/16/24 11:07 Nasal Coronavir 229E PCR NOT DETECTED 03/16/24 11:07 Nasal Coronavir HKU1 PCR NOT DETECTED 03/16/24 11:07 Nasal Coronavir NL63 PCR NOT DETECTED 03/16/24 11:07 Nasal Coronavir OC43 PCR NOT DETECTED 03/16/24 11:07 Nasal Enterovir/Rhinovir PCR DETECTED A 03/16/24 11:07 Nasal Influenza B PCR NOT DETECTED 03/16/24 11:07 Nasal Influenza A PCR NOT DETECTED 03/16/24 11:07 Nasal Parainfluen 1 PCR NOT DETECTED 03/16/24 11:07 Nasal Parainfluen 2 PCR NOT DETECTED 03/16/24 11:07 Nasal Parainfluen 3 PCR NOT DETECTED 03/16/24 11:07 Nasal Parainfluen 4 PCR NOT DETECTED 03/16/24 11:07 Nasal RSV (PCR) NOT DETECTED 03/16/24 11:07 Nasal Screen MRSA (PCR) NEGATIVE (NEGATIVE) 03/16/24 14:20 Nasal B.pertussis DNA PCR NOT DETECTED 03/16/24 11:07 Nasal C.pneumoniae (PCR) NOT DETECTED 03/16/24 11:07 Viraj Human Metapneumo PCR NOT DETECTED 03/16/24 11:07 Nasal M.pneumoniae (PCR) NOT DETECTED 03/16/24 11:07 Nasal SARS-CoV-2 (PCR) NOT DETECTED 03/16/24 11:07
[2024-03-17] MEDS: ENOXAPARIN 40 MG/0.4 ML SYRINGE SUBQ SCH (22:22)
[2024-03-17] MEDS: PREGABALIN 25 MG CAPSULE PO SCH (22:24)
[2024-03-17] MEDS: AZITHROMYCIN INJ 500 MG in SODIUM CHLORIDE 0.9% 250 ML IV SCH (22:53)
[2024-03-17] MEDS: MORPHINE 2 MG/ML CARPUJECT IVP PRN (23:28)
[2024-03-18] MEDS: PANTOPRAZOLE 40 MG VIAL IVP SCH (02:39)
[2024-03-18 05:19] LABS: HCT - HEMATOCRIT 29.7 % (37.0-47.0); MEAN CORPUSCULAR HEMOGLOBIN 31.9 pg (27.0-31.0); MEAN CORPUSCULAR HGB CONC 33.7 g/dL (32.0-36.0); MEAN CORPUSCULAR VOLUME 94.9 fL (81.0-99.0); MEAN PLATELET VOLUME 10.6 fL (7.9-10.8); RED BLOOD COUNT 3.13 10^6/uL (4.20-5.40); RED CELL DISTRIBUTION WIDTH 14.7 % (12.0-15.0); WHITE BLOOD COUNT 9.5 x10^3/uL (4.8-10.8)
[2024-03-18 06:03] LABS: CALCIUM, IONIZED 1.09 mmol/L (1.15-1.33); VBG PH 7.228 (7.31-7.41)
[2024-03-18] MEDS: CALCIUM GLUC 1,000MG/50ML-NACL 1,000 MG/50 ML BAG IV ONE ×2 (06:32→17:10)
[2024-03-18 06:55] LABS: ALBUMIN 2.1 g/dL (3.2-5.5); ALBUMIN/GLOBULIN RATIO 1.1 (1.0-2.2); BILIRUBIN,TOTAL 0.1 mg/dL (0.2-1.0); CALCIUM 6.3 mg/dL (8.5-10.3); CREATININE 0.4 mg/dL (0.6-1.3); MAGNESIUM 1.8 mg/dL (1.7-2.3); POTASSIUM 4.1 mmol/L (3.5-4.5)
[2024-03-18] MEDS: MAGNESIUM SULFATE 2 GRAM 2 GM/50 ML BAG IV ONE (07:53)
--- NOTE | 2024-03-18 08:33 | PROVIDER PROGRESS NOTE ---
Assessment/Plan - Problem List (1) Acute respiratory failure with hypoxemia Assessment/Plan: Troponin continues to decrease and serum bicarbonate has increased to 20. She underwent a spontaneous breathing trial with a PEEP/pressure support of 5/5 and did well. Patient passed her spontaneous breathing trial and was extubated. She did well for approximately 2 hours and then started to increase her re spiratory rate and was placed on bilevel positive airway pressure therapy for respiratory support with an IPAP/EPAP 10/5 and an FiO2 of 40%. Continue supportive care with BiPAP Patient currently has a life-threatening condition that requires artificial life support with bilevel positive airway pressure therapy. She remains critically ill and continues to require bilevel positive airway pressure therapy. (2) Aspiration into airway Conclusion/Plan: It is highly likely the patient had an aspiration event over the last 24 hours. Plan is to initiate empiric antibiotic coverage with Zosyn 3.375 g every 6 hours intravenously. Continue azithromycin 500 mg IV daily x 5 days. (3) Rhinovirus infection Conclusion/Plan: Nasal swab and viral culture consistent with rhinovirus. Continue supportive care. (4) Multiple sclerosis Conclusion/Plan: Per report multiple sclerosis is at baseline. Continue to monitor. Fingolimod initiated today. (5) NSTEMI (non-ST elevated myocardial infarction) Conclusion/Plan: Most likely secondary to double product ischemia. Continue supportive care mechanical ventilation. Echocardiogram has been ordered. Anticoagulation with Lovenox Continue aspirin daily. Continue nitroglycerin drip and esmolol drip Goal is heart rate of 6080. Continue esmolol for rate control with goal of HR 60-70. (6) COPD with exacerbation Conclusion/Plan: Continue DuoNeb and Solu-Medrol 40 mg intravenously daily Critical care time spent at bedside discussing care with nurse and respiratory therapy, writing orders, examining the patient and reviewing labs is 45 minutes. This excludes time for procedures. - Current Meds Current Meds: Current Medications Generic Name Dose Route Start Last Admin Trade Name Freq PRN Reason Stop Dose Admin Albuterol/Ipratropium 3 ml 03/17/24 00:01 03/17/24 23:15 Ipratropium/Albuterol 3 Ml Neb INH 3 ml RTQ4H JAY Administration Aspirin 81 mg 03/16/24 16:15 03/17/24 08:47 Aspirin Chew 81 Mg Tablet PO 81 mg DAILY JAY Administration Enoxaparin Sodium 40 mg 03/17/24 21:00 03/17/24 22:22 Enoxaparin 40 Mg/0.4 Ml Syringe SUBQ 40 mg BID JAY Administration Fentanyl 12.5 mcg 03/16/24 13:42 03/17/24 21:09 Fentanyl 100 Mcg/2 Ml Vial IVP 12.5 mcg Q4H PRN Administration PAIN 5-7 Fentanyl 1 patch 03/17/24 17:00 03/17/24 17:30 Fentanyl 12 Mcg Patch TOP 1 patch Q3D JAY Administration Piperacillin Sod/Tazobactam 100 mls @ 25 mls/hr 03/16/24 18:00 03/18/24 06:18 Sod 3.375 gm/ Sodium Chloride IV Infused 0200,1000,1800 JAY Infusion Propofol 1,000 mg in 100 mls @ 2.58 mls/hr 03/16/24 19:00 03/18/24 07:45 Diprivan IV 25 mcg/kg/min .[id number] JAY 6.45 mls/hr Titration Protocol 10 MCG/KG/MIN Esmolol HCl 2.5 gm in 250 mls @ 13.2 mls/hr 03/17/24 09:00 03/18/24 06:39 Brevibloc IV 0.05 mg/kg/min .[id number] JAY 13.2 mls/hr Titration Protocol 0.05 MG/KG/MIN Nitroglycerin 50 mg in 250 mls @ 1.5 mls/hr 03/17/24 19:00 03/18/24 06:40 Nitroglycerin IV 10 mcg/min .Q72H JAY 3 mls/hr Titration Protocol 5 MCG/MIN Azithromycin 500 mg/ Sodium 250 mls @ 250 mls/hr 03/17/24 21:59 03/17/24 23:55 Chloride IV Infused DAILY JAY Infusion Lorazepam 0.5 mg 03/16/24 17:33 03/18/24 00:55 Lorazepam 2 Mg/Ml Vial IVP 0.5 mg Q2H PRN Administration Anxiety Methylprednisolone 40 mg 03/16/24 22:16 03/17/24 08:47 Methylprednisolone Succinate 40 Mg/Ml Vial IVP 40 mg DAILY JAY Administration Morphine Sulfate 2 mg 03/17/24 22:05 03/17/24 23:28 Morphine 2 Mg/Ml Carpuject IVP 2 mg Q2H PRN Administration PAIN 5-7 Pantoprazole Sodium 40 mg 03/17/24 22:10 03/18/24 06:39 Pantoprazole 40 Mg Vial IVP 40 mg QDAC JAY Administration Pregabalin 25 mg 03/17/24 21:00 03/17/24 22:24 Pregabalin 25 Mg Capsule PO 25 mg BID JAY Administration Sodium Chloride 10 ml 03/16/24 17:00 03/18/24 00:56 Sodium Chloride Flush 0.9% 10 Ml Syringe IVP 10 ml 0100,0900,1700 JAY Administration - Lab Result Fish Bone Diagrams: 03/18/24 04:20 03/18/24 16:11 - Additional Planning My Orders: My Active Orders 03/17/24 08:00 Echo Transthoracic Complete [ECHO] Routine 03/17/24 09:00 Esmolol [Brevibloc] 2.5 gm in 250 ml IV 0.05 mg/kg/min 03/17/24 16:43 NonViolent Restraint(s) Q24H 03/17/24 17:00 [id number] 12 MCG PATCH [Duragesic] 1 patch TOP Q3D 03/17/24 18:13 Tube Feeding [RC] Q4H 03/17/24 19:00 Nitroglycerin 50 mg/250 ml [Nitroglycerin] 50 mg in 250 ml IV 5 mcg/min 03/17/24 21:00 Enoxaparin [Lovenox] 40 mg SUBQ BID Pregabalin [Lyrica] 25 mg PO BID 03/17/24 21:59 Azithromycin Inj [Zithromax Inj] 500 mg Sodium Chloride 0.9% [Normal Saline 0.9%] 250 ml IV DAILY 03/17/24 22:05 Morphine Inj (Carpuject) [Morphine (Carpuject)] 2 mg IVP Q2H PRN 03/17/24 22:10 Pantoprazole [Protonix] 40 mg IVP QDAC 03/18/24 08:00 Sodium Phosphate 15 mmol Sodium Chloride 0.9% [Normal Saline 0.9%] 250 ml IV ONCE 03/18/24 08:29 Sodium Chloride 0.9% [Normal Saline 0.9%] 500 ml IV ONCE 03/18/24 09:00 Patient Own Med 1 each NG DAILY Sodium Chloride 0.9% [Normal Saline 0.9%] 1,000 ml IV 87 mls/hr Subjective - Subjective Patient Reports: Other (Extubated this evening. Postextubation, patient is mildly/moderately anxious.) Objective Vital Signs: Vital Signs - 24 hr 03/17/24 03/17/24 03/17/24 08:35 08:40 08:45 Temperature Heart Rate Heart Rate [ 106 H 105 H 105 H Monitoring electrodes] Respiratory 20 22 21 Rate Blood Pressure 98/62 Blood Pressure 100/63 96/62 99/64 [Left Brachial artery] Blood Pressure [Right Femoral artery] O2 Saturation 99 99 99 03/17/24 03/17/24 03/17/24 08:52 09:00 10:00 Temperature Heart Rate 106 H Heart Rate [ 106 H 109 H Monitoring electrodes] Respiratory 18 20 Rate Blood Pressure Blood Pressure 96/65 101/63 [Left Brachial artery] Blood Pressure [Right Femoral artery] O2 Saturation 99 98 03/17/24 03/17/24 03/17/24 10:41 11:00 11:45 Temperature Heart Rate 110 H 110 H Heart Rate [ 111 H Monitoring electrodes] Respiratory 20 Rate Blood Pressure Blood Pressure 98/65 [Left Brachial artery] Blood Pressure [Right Femoral artery] O2 Saturation 99 03/17/24 03/17/24 03/17/24 12:00 12:50 12:52 Temperature Heart Rate 110 H 110 H Heart Rate [ 105 H Monitoring electrodes] Respiratory 23 24 Rate Blood Pressure Blood Pressure 106/67 [Left Brachial artery] Blood Pressure [Right Femoral artery] O2 Saturation 99 03/17/24 03/17/24 03/17/24 13:00 14:00 15:00 Temperature 36.9 C Heart Rate Heart Rate [ 110 H 115 H 110 H Monitoring electrodes] Respiratory 20 22 23 Rate Blood Pressure Blood Pressure 121/75 121/75 125/78 [Left Brachial artery] Blood Pressure [Right Femoral artery] O2 Saturation 98 100 99 03/17/24 03/17/24 03/17/24 15:07 16:00 17:00 Temperature Heart Rate 108 H Heart Rate [ 114 H 117 H Monitoring electrodes] Respiratory 25 H 21 Rate Blood Pressure Blood Pressure 125/77 105/66 [Left Brachial artery] Blood Pressure [Right Femoral artery] O2 Saturation 98 99 03/17/24 03/17/24 03/17/24 17:38 18:00 19:00 Temperature Heart Rate 108 H Heart Rate [ 117 H 88 Monitoring electrodes] Respiratory 22 24 Rate Blood Pressure Blood Pressure 125/74 123/67 [Left Brachial artery] Blood Pressure [Right Femoral artery] O2 Saturation 99 99 03/17/24 03/17/24 03/17/24 19:08 19:10 19:30 Temperature Heart Rate 94 96 Heart Rate [ 84 Monitoring electrodes] Respiratory 28 H Rate Blood Pressure Blood Pressure 113/65 [Left Brachial artery] Blood Pressure [Right Femoral artery] O2 Saturation 03/17/24 03/17/24 03/17/24 20:00 20:15 20:30 Temperature Heart Rate Heart Rate [ 81 81 83 Monitoring electrodes] Respiratory 22 25 H 17 Rate Blood Pressure Blood Pressure 119/67 119/67 112/70 [Left Brachial artery] Blood Pressure [Right Femoral artery] O2 Saturation 100 99 99 03/17/24 03/17/24 03/17/24 20:45 21:00 21:15 Temperature Heart Rate Heart Rate [ 81 80 80 Monitoring electrodes] Respiratory 18 28 H 27 H Rate Blood Pressure Blood Pressure 115/69 112/65 113/67 [Left Brachial artery] Blood Pressure [Right Femoral artery] O2 Saturation 99 98 99 03/17/24 03/17/24 03/17/24 22:00 23:00 23:17 Temperature Heart Rate 87 Heart Rate [ 81 90 Monitoring electrodes] Respiratory 26 H 23 30 H Rate Blood Pressure Blood Pressure 114/70 127/74 [Left Brachial artery] Blood Pressure [Right Femoral artery] O2 Saturation 98 98 03/17/24 03/18/24 03/18/24 23:30 00:00 01:00 Temperature 36.5 C Heart Rate 74 Heart Rate [ 83 88 Monitoring electrodes] Respiratory 32 H 14 Rate Blood Pressure Blood Pressure 106/69 102/90 H [Left Brachial artery] Blood Pressure [Right Femoral artery] O2 Saturation 99 100 03/18/24 03/18/24 03/18/24 02:00 02:15 02:20 Temperature Heart Rate Heart Rate [ 74 Monitoring electrodes] Respiratory 25 H Rate Blood Pressure Blood Pressure 91/52 L 87/46 L 84/47 L [Left Brachial artery] Blood Pressure [Right Femoral artery] O2 Saturation 98 03/18/24 03/18/24 03/18/24 02:23 02:25 02:30 Temperature Heart Rate 75 Heart Rate [ Monitoring electrodes] Respiratory Rate Blood Pressure Blood Pressure 86/45 L 86/47 L [Left Brachial artery] Blood Pressure [Right Femoral artery] O2 Saturation 03/18/24 03/18/24 03/18/24 02:35 02:40 03:00 Temperature Heart Rate Heart Rate [ 71 Monitoring electrodes] Respiratory 22 Rate Blood Pressure Blood Pressure 84/46 L 83/47 L 86/51 L [Left Brachial artery] Blood Pressure [Right Femoral artery] O2 Saturation 99 03/18/24 03/18/24 03/18/24 03:30 03:55 04:00 Temperature 36.6 C Heart Rate 74 Heart Rate [ 70 Monitoring electrodes] Respiratory 23 Rate Blood Pressure Blood Pressure 92/52 L 101/61 [Left Brachial artery] Blood Pressure [Right Femoral artery] O2 Saturation 100 03/18/24 03/18/24 03/18/24 04:30 05:00 05:29 Temperature Heart Rate 69 Heart Rate [ 69 Monitoring electrodes] Respiratory 22 Rate Blood Pressure Blood Pressure 103/61 101/58 L [Left Brachial artery] Blood Pressure [Right Femoral artery] O2 Saturation 100 03/18/24 03/18/24 03/18/24 05:30 06:00 06:30 Temperature Heart Rate Heart Rate [ 68 Monitoring electrodes] Respiratory 24 Rate Blood Pressure Blood Pressure 107/57 L 114/65 107/62 [Left Brachial artery] Blood Pressure [Right Femoral artery] O2 Saturation 100 03/18/24 03/18/24 03/18/24 07:00 07:13 08:00 Temperature 36.6 C Heart Rate 70 Heart Rate [ 70 72 Monitoring electrodes] Respiratory 24 23 Rate Blood Pressure Blood Pressure 115/61 [Left Brachial artery] Blood Pressure 118/66 [Right Femoral artery] O2 Saturation 100 100 Oxygen O2 Source Mechanical ventilator I&O (Last 24 Hrs): Intake and Output Totals x24h 03/16/24 03/17/24 03/18/24 23:59 23:59 23:59 Intake Total 2593.394 4382.324 1650.189 Output Total 473 847 315 Balance 2120.394 3535.324 1335.189 General: Alert, No acute distress Neck: Supple, No JVD Neuro: Alert, Non Focal Cardiovascular: Other (Positive S1-S2 no extra heart sounds) Respiratory: Other (Good air exchange in all lung olivares no wheezing no crackles.) Abdomen: Other (Soft nontender nondistended positive bowel sounds) Extremities: No cyanosis, No edema Skin: No rashes - Results Results: Laboratory Results WBC 9.5 x10^3/uL (4.8-10.8) 03/18/24 04:20 RBC 3.13 10^6/uL (4.20-5.40) L 03/18/24 04:20 Hgb 10.0 g/dL (12.0-16.0) L 03/18/24 04:20 Hct 29.7 % (37.0-47.0) L 03/18/24 04:20 MCV 94.9 fL (81.0-99.0) 03/18/24 04:20 MCH 31.9 pg (27.0-31.0) H 03/18/24 04:20 MCHC 33.7 g/dL (32.0-36.0) 03/18/24 04:20 RDW 14.7 % (12.0-15.0) 03/18/24 04:20 Plt Count 330 10^3/uL (130-450) 03/18/24 04:20 MPV 10.6 fL (7.9-10.8) 03/18/24 04:20 Neut # (Auto) 7.2 10^3/uL (1.5-6.6) H 03/16/24 10:50 Lymph # (Auto) 1.2 10^3/uL (1.5-3.5) L 03/16/24 10:50 [place] # (Auto) 0.5 10^3/uL (0.0-1.0) 03/16/24 10:50 Eos # (Auto) 0.0 10^3/uL (0.0-0.7) 03/16/24 10:50 Baso # (Auto) 0.1 10^3/uL (0.0-0.1) 03/16/24 10:50 Absolute Nucleated RBC 0.00 x10^3/uL 03/16/24 10:50 Nucleated RBC % 0.0 /100WBC 03/16/24 10:50 Manual Slide Review Indicated 03/16/24 10:50 RBC Morph Micro Appear 1+ ANISOCYTOSIS (NORMAL) 03/16/24 10:50 Bld Gas Analysis Time 1145 03/16/24 11:45 Sample Site RIGHT RADIAL 03/16/24 11:45 ABG pH 7.28 (7.35-7.45) L 03/16/24 11:45 ABG pCO2 45 mmHg (34-45) 03/16/24 11:45 ABG pO2 98 mmHg (80-100) 03/16/24 11:45 ABG HCO3 20.6 mmol/L (22.0-26.0) L 03/16/24 11:45 ABG Total CO2 22.0 MMOL/L (21.0-29.0) 03/16/24 11:45 ABG O2 Saturation 96 % (94-98) 03/16/24 11:45 ABG Base Excess -5.9 mmol/L (-2.0-3.0) L 03/16/24 11:45 Yohannes Test POSITIVE 03/16/24 11:45 VBG pH 7.228 (7.31-7.41) L 03/18/24 04:20 VBG pCO2 33.5 mmHg (41-51) L 03/16/24 20:59 VBG pO2 47.1 mmHg (25-47) H 03/16/24 20:59 VBG HCO3 15.2 mmol/L (23-28) L 03/16/24 20:59 VBG Total CO2 16.2 mmol/L (24-29) L 03/16/24 20:59 VBG O2 Saturation 79.0 % (60-80) 03/16/24 20:59 VBG Base Excess -10.6 mmol/L (-2 - +2) L 03/16/24 20:59 Ionized Calcium 1.09 mmol/L (1.15-1.33) L 03/18/24 04:20 Respiration Rate 16 b/min 03/16/24 11:45 O2 Delivery Device MECH VENT 03/16/24 11:45 Vent Mode SIMV 03/16/24 11:45 FiO2 50.00 03/16/24 11:45 Tidal Volume 400 mL 03/16/24 11:45 PEEP 5 cmH2O 03/16/24 11:45 Pressure Support Vent 8 cmH2O 03/16/24 11:45 Sodium 137 mmol/L (135-145) 03/18/24 04:20 Potassium 4.1 mmol/L (3.5-4.5) 03/18/24 04:20 Chloride 114 mmol/L (101-111) H 03/18/24 04:20 Carbon Dioxide 16 mmol/L (21-32) L 03/18/24 04:20 Anion Gap 7.0 (6-13) 03/18/24 04:20 BUN 21 mg/dL (6-20) H 03/18/24 04:20 Creatinine 0.4 mg/dL (0.6-1.3) L 03/18/24 04:20 Estimated GFR (MDRD) 162 (>89) 03/18/24 04:20 Glucose 103 mg/dL (74-104) 03/18/24 04:20 Lactic Acid 1.1 mmol/L (0.5-2.2) 03/17/24 09:01 Calcium 6.3 mg/dL (8.5-10.3) L* 03/18/24 04:20 Phosphorus 2.0 mg/dL (2.5-5.0) L 03/18/24 04:20 Magnesium 1.8 mg/dL (1.7-2.3) 03/18/24 04:20 Total Bilirubin 0.1 mg/dL (0.2-1.0) L 03/18/24 04:20 Direct Bilirubin 0.23 mg/dL (0.03-0.18) H 03/17/24 04:25 AST 79 IU/L (10-42) H 03/18/24 04:20 ALT 107 IU/L (10-60) H 03/18/24 04:20 Alkaline Phosphatase 20 IU/L (42-121) L 03/18/24 04:20 Troponin I High Sens 630.4 ng/L (2.3-14.8) H* 03/18/24 04:20 Total Protein 4.0 g/dL (6.4-8.9) L 03/18/24 04:20 Albumin 2.1 g/dL (3.2-5.5) L 03/18/24 04:20 Globulin 1.9 g/dL (2.1-4.2) L 03/18/24 04:20 Albumin/Globulin Ratio 1.1 (1.0-2.2) 03/18/24 04:20 Nasal Adenovirus (PCR) NOT DETECTED 03/16/24 11:07 Nasal B. parapertussis DNA (PCR) NOT DETECTED 03/16/24 11:07 Nasal Coronavir 229E PCR NOT DETECTED 03/16/24 11:07 Nasal Coronavir HKU1 PCR NOT DETECTED 03/16/24 11:07 Nasal Coronavir NL63 PCR NOT DETECTED 03/16/24 11:07 Nasal Coronavir OC43 PCR NOT DETECTED 03/16/24 11:07 Nasal Enterovir/Rhinovir PCR DETECTED A 03/16/24 11:07 Nasal Influenza B PCR NOT DETECTED 03/16/24 11:07 Nasal Influenza A PCR NOT DETECTED 03/16/24 11:07 Nasal Parainfluen 1 PCR NOT DETECTED 03/16/24 11:07 Nasal Parainfluen 2 PCR NOT DETECTED 03/16/24 11:07 Nasal Parainfluen 3 PCR NOT DETECTED 03/16/24 11:07 Nasal Parainfluen 4 PCR NOT DETECTED 03/16/24 11:07 Nasal RSV (PCR) NOT DETECTED 03/16/24 11:07 Nasal Screen MRSA (PCR) NEGATIVE (NEGATIVE) 03/16/24 14:20 Nasal B.pertussis DNA PCR NOT DETECTED 03/16/24 11:07 Nasal C.pneumoniae (PCR) NOT DETECTED 03/16/24 11:07 Viraj Human Metapneumo PCR NOT DETECTED 03/16/24 11:07 Nasal M.pneumoniae (PCR) NOT DETECTED 03/16/24 11:07 Nasal SARS-CoV-2 (PCR) NOT DETECTED 03/16/24 11:07
[2024-03-18] MEDS: SODIUM CHLORIDE 0.9% 500 ML IV ONE (08:50)
[2024-03-18] MEDS: SODIUM PHOSPHATE 15 MMOL in SODIUM CHLORIDE 0.9% 250 ML IV ONE (08:51)
[2024-03-18] MEDS: SODIUM CHLORIDE 0.9% 1,000 ML IV SCH (08:53)
[2024-03-18] MEDS ORDERED: Fingolimod Hcl [Gilenya] 0.5 MG Capsule NG SCH (09:00)
--- NOTE | 2024-03-18 09:41 | XRAY Report ---
PROCEDURE: Chest 1V INDICATIONS: Intubated patient with NSTEMI and COPD exac. TECHNIQUE: One view of the chest was acquired. COMPARISON: 03/17/2024 FINDINGS: Surgical changes and devices: Endotracheal and nasogastric tubes remain unchanged Lungs and pleura: No pneumothorax. The small right pleural effusion has increased from the prior exa m. Right mid lung pulmonary infiltrate is also similar. Underlying hyperinflation Mediastinum: Mediastinal contours appear normal. Heart size is normal. Bones and chest wall: No suspicious bony lesions. Overlying soft tissues appear unremarkable. IMPRESSION: Stable right-sided pulmonary infiltrate. Endotracheal and nasogastric tube unchanged Reviewed by: Jatinder Javier MD on 03/18/2024 8:40 AM [facility] Approved by: Jatinder Javier MD on 03/18/2024 8:40 AM AKLEAH Station ID: [id number]
[2024-03-18] MEDS: Fingolimod Hcl [Gilenya] 0.5 MG Capsule NG SCH (10:56)
[2024-03-18 16:19] LABS: CALCIUM, IONIZED 1.04 mmol/L (1.15-1.33); VBG PH 7.338 (7.31-7.41)
[2024-03-18 16:38] LABS: CALCIUM 7.2 mg/dL (8.5-10.3); CREATININE 0.4 mg/dL (0.6-1.3); MAGNESIUM 2.1 mg/dL (1.7-2.3); PHOSPHORUS 2.3 mg/dL (2.5-5.0)
[2024-03-18] MEDS: NEUTRA-PHOS 250 MG TABLET PO SCH (17:10)
[2024-03-18] MEDS: fentaNYL 100 MCG/2 ML VIAL IVP SCH ×2 (18:05→19:42)
[2024-03-18] MEDS: FUROSEMIDE 20 MG/2 ML VIAL IVP SCH (19:47)
[2024-03-18] MEDS: methylPREDNISolone SUCCINATE 40 MG/ML VIAL IVP SCH (20:36)
[2024-03-18 20:48] LABS: CALCIUM, IONIZED 1.17 mmol/L (1.15-1.33); VBG BASE EXCESS -15.2 mmol/L (-2 - +2); VBG HCO3 14.3 mmol/L (23-28); VBG OXYGEN SATURATION 95.9 % (60-80); VBG PCO2 48.4 mmHg (41-51); VBG PO2 105.6 mmHg (25-47); VBG TOTAL CO2 15.8 mmol/L (24-29)
[2024-03-18 20:50] LABS: VBG PH 7.084 (7.31-7.41)
[2024-03-18 20:51] LABS: VBG PH 7.084 (7.31-7.41)
[2024-03-18] MEDS: LORazepam 2 MG/ML VIAL IVP PRN (21:14)
[2024-03-18] MEDS: SODIUM BICARBONATE 150 MEQ in DEXTROSE 5% 1,000 ML IV SCH (21:41)
--- NOTE | 2024-03-18 21:54 | XRAY Report ---
PROCEDURE: Chest 1V INDICATIONS: s/p extubation complaining of dyspnea. TECHNIQUE: One view of the chest was acquired. COMPARISON: 03/18/2024. FINDINGS: Surgical changes and devices: None. Lungs and pleura: Similar appearance of right-sided pulmonary infiltrates, most pronounced within th e mid and lower lung olivares Mediastinum: Mediastinal contours appear normal. Heart size is normal. Bones and chest wall: No suspicious bony lesions. Overlying soft tissues appear unremarkable. IMPRESSION: Similar appearance of right-sided pulmonary infiltrates, most pronounced within the mid and lower yue g olivares. Reviewed by: Joe Cagle MD on 03/18/2024 9:52 PM PDT Approved by: Joe Cagle MD on 03/18/2024 9:52 PM PDT Station ID: [id number]
[2024-03-18 22:36] LABS: CALCIUM 7.5 mg/dL (8.5-10.3); CREATININE 0.5 mg/dL (0.6-1.3); POTASSIUM 4.2 mmol/L (3.5-4.5)
[2024-03-19] MEDS: MORPHINE 2 MG/ML CARPUJECT IVP PRN (02:26)
[2024-03-19] MEDS: LORazepam 2 MG/ML VIAL IVP PRN (03:31)
[2024-03-19 05:23] LABS: CALCIUM, IONIZED 0.94 mmol/L (1.15-1.33); HCT - HEMATOCRIT 34.8 % (37.0-47.0); HGB - HEMOGLOBIN 11.1 g/dL (12.0-16.0); MEAN CORPUSCULAR HEMOGLOBIN 31.2 pg (27.0-31.0); MEAN CORPUSCULAR HGB CONC 31.9 g/dL (32.0-36.0); MEAN CORPUSCULAR VOLUME 97.8 fL (81.0-99.0); RED BLOOD COUNT 3.56 10^6/uL (4.20-5.40); RED CELL DISTRIBUTION WIDTH 15.1 % (12.0-15.0); VBG PH 7.352 (7.31-7.41); WHITE BLOOD COUNT 13.7 x10^3/uL (4.8-10.8)
[2024-03-19 05:51] LABS: ALBUMIN 2.9 g/dL (3.2-5.5); ALBUMIN/GLOBULIN RATIO 1.2 (1.0-2.2); BILIRUBIN,TOTAL 0.3 mg/dL (0.2-1.0); CALCIUM 7.4 mg/dL (8.5-10.3); CREATININE 0.6 mg/dL (0.6-1.3); TOTAL PROTEIN 5.4 g/dL (6.4-8.9)
[2024-03-19 05:56] LABS: BILIRUBIN,URINE NEGATIVE (NEGATIVE); GLUCOSE, URINE (UA) NEGATIVE (NEGATIVE); KETONES,URINE (UA) NEGATIVE (NEGATIVE); LEUKOCYTE ESTERASE, URINE NEGATIVE (NEGATIVE); NITRITE,URINE NEGATIVE (NEGATIVE); OCCULT BLOOD,URINE LARGE (NEGATIVE); PROTEIN,URINE TRACE mg/dL (NEGATIVE); UROBILINOGEN,URINE 0.2 (NORMAL) E.U./dL (NORMAL)
[2024-03-19] MEDS: CALCIUM GLUCONATE IN NS 0.9% 2,000 MG/100 ML BAG IV ONE (06:00)
[2024-03-19 06:06] LABS: CLARITY,URINE CLEAR (CLEAR)
[2024-03-19 06:15] LABS: BACTERIA,URINE Rare /HPF (None Seen); RBC,URINE TNTC /HPF (0-5); SQUAMOUS EPITHELIAL CELL,UR RARE Squamous (<= Few); WBC,URINE 0-3 /HPF (0-5)
[2024-03-19 06:16] LABS: YEAST,URINE PRESENT
--- NOTE | 2024-03-19 08:10 | PROVIDER PROGRESS NOTE ---
Assessment/Plan - Current Meds Current Meds: Current Medications Generic Name Dose Route Start Last Admin Trade Name Freq PRN Reason Stop Dose Admin Albuterol/Ipratropium 3 ml 03/17/24 00:01 03/19/24 02:35 Ipratropium/Albuterol 3 Ml Neb INH 3 ml RTQ4H JAY Administration Aspirin 81 mg 03/16/24 16:15 03/18/24 09:28 Aspirin Chew 81 Mg Tablet PO 81 mg DAILY JAY Administration Enoxaparin Sodium 40 mg 03/17/24 21:00 03/18/24 20:49 Enoxaparin 40 Mg/0.4 Ml Syringe SUBQ 40 mg BID JAY Administration Fentanyl 1 patch 03/17/24 17:00 03/17/24 17:30 Fentanyl 12 Mcg Patch TOP 1 patch Q3D JAY Administration Fentanyl 12.5 mcg 03/18/24 17:48 03/18/24 18:05 Fentanyl 100 Mcg/2 Ml Vial IVP 03/19/24 17:47 12.5 mcg ONCE JAY Administration Fentanyl 12.5 mcg 03/18/24 20:00 03/18/24 19:42 Fentanyl 100 Mcg/2 Ml Vial IVP 03/19/24 19:59 12.5 mcg ONCE JAY Administration Furosemide 20 mg 03/18/24 20:00 03/18/24 19:47 Furosemide 20 Mg/2 Ml Vial IVP 03/19/24 19:59 20 mg ONCE JAY Administration Piperacillin Sod/Tazobactam 100 mls @ 25 mls/hr 03/16/24 18:00 03/19/24 05:39 Sod 3.375 gm/ Sodium Chloride IV Infused 0200,1000,1800 JAY Infusion Propofol 1,000 mg in 100 mls @ 2.58 mls/hr 03/16/24 19:00 03/18/24 17:00 Diprivan IV 0 mcg/kg/min .[id number] JAY 0 mls/hr Titration Protocol 10 MCG/KG/MIN Esmolol HCl 2.5 gm in 250 mls @ 13.2 mls/hr 03/17/24 09:00 03/19/24 07:53 Brevibloc IV 0.2 mg/kg/min .[id number] JAY 52.8 mls/hr Titration Protocol 0.05 MG/KG/MIN Nitroglycerin 50 mg in 250 mls @ 1.5 mls/hr 03/17/24 19:00 03/18/24 06:40 Nitroglycerin IV 10 mcg/min .Q72H JAY 3 mls/hr Titration Protocol 5 MCG/MIN Azithromycin 500 mg/ Sodium 250 mls @ 250 mls/hr 03/17/24 21:59 03/18/24 1 0:30 Chloride IV Infused DAILY JAY Infusion Sodium Bicarbonate 150 meq/ 1,150 mls @ 100 mls/hr 03/18/24 21:00 03/19/24 07:22 Dextrose IV Infused .[id number] JAY Infusion Lorazepam 0.5 mg 03/16/24 17:33 03/18/24 00:55 Lorazepam 2 Mg/Ml Vial IVP 0.5 mg Q2H PRN Administration Anxiety Lorazepam 1 mg 03/19/24 02:17 03/19/24 06:22 Lorazepam 2 Mg/Ml Vial IVP 1 mg Q2H PRN Administration Anxiety Methylprednisolone 40 mg 03/16/24 22:16 03/18/24 09:15 Methylprednisolone Succinate 40 Mg/Ml Vial IVP 40 mg DAILY JAY Administration Methylprednisolone 40 mg 03/18/24 20:00 03/18/24 20:36 Methylprednisolone Succinate 40 Mg/Ml Vial IVP 03/19/24 19:59 40 mg ONCE JAY Administration Morphine Sulfate 2 mg 03/17/24 22:05 03/19/24 07:58 Morphine 2 Mg/Ml Carpuject IVP 2 mg Q2H PRN Administration PAIN 5-7 Morphine Sulfate 2 mg 03/19/24 02:17 03/19/24 02:26 Morphine 2 Mg/Ml Carpuject IVP 03/20/24 02:16 2 mg ONCE PRN Administration Breakthrough Pain Pantoprazole Sodium 40 mg 03/17/24 22:10 03/19/24 06:29 Pantoprazole 40 Mg Vial IVP 40 mg QDAC JAY Administration Fingolimod Hcl [ 1 each 03/18/24 11:00 03/18/24 10:56 [place]] 0.5 Mg NG 1 each Capsule DAILY JAY Administration Pregabalin 25 mg 03/17/24 21:00 03/18/24 21:06 Pregabalin 25 Mg Capsule PO Not Given BID JAY Sodium Chloride 10 ml 03/16/24 17:00 03/19/24 01:28 Sodium Chloride Flush 0.9% 10 Ml Syringe IVP 10 ml 0100,0900,1700 JAY Administration - Lab Result Fish Bone Diagrams: 03/19/24 05:06 03/19/24 05:06 - Additional Planning My Orders: My Active Orders 03/18/24 11:00 Patient Own Med 1 each NG DAILY 03/18/24 17:48 fentaNYL 12.5 mcg IVP ONCE 03/18/24 19:45 BIPAP/CPAP - RT [RC] .Q2H 03/18/24 20:00 FUROSEMIDE INJ 20mg VIAL [LASIX INJ 20mg VIAL] 20 mg IVP ONCE fentaNYL 12.5 mcg IVP ONCE methylPREDNISolone SUCCINATE [SOLU-Medrol (40MG VIAL)] 40 mg IVP ONCE 03/18/24 21:00 Dextrose 5% [D5w] 1,000 ml Sodium Bicarbonate 150 meq IV 100 mls/hr 03/18/24 21:02 Miscellaenous Nursing Order [RC] QSHIFT 03/19/24 07:22 Echo Transthoracic Complete [ECHO] Routine Objective Vital Signs: Vital Signs - 24 hr 03/18/24 03/18/24 03/18/24 09:00 10:00 11:00 Temperature Heart Rate Heart Rate [ 75 75 78 Monitoring electrodes] Respiratory 22 25 H 23 Rate Blood Pressure 121/65 119/64 116/67 [Right Femoral artery] O2 Saturation 100 100 100 If not protocol : Oxygen Flow, liters/minute 03/18/24 03/18/24 03/18/24 11:04 12:00 13:00 Temperature 36.7 C Heart Rate 74 Heart Rate [ 79 77 Monitoring electrodes] Respiratory 18 26 H 26 H Rate Blood Pressure 125/65 120/70 [Right Femoral artery] O2 Saturation 100 100 If not protocol : Oxygen Flow, liters/minute 03/18/24 03/18/24 03/18/24 13:39 14:00 14:56 Temperature Heart Rate 70 70 Heart Rate [ 71 Monitoring electrodes] Respiratory 24 16 Rate Blood Pressure 113/63 [Right Femoral artery] O2 Saturation 100 If not protocol : Oxygen Flow, liters/minute 03/18/24 03/18/24 03/18/24 15:00 16:00 17:14 Temperature 36.9 C Heart Rate Heart Rate [ 72 74 76 Monitoring electrodes] Respiratory 26 H 17 24 Rate Blood Pressure 125/70 113/84 H 129/74 [Right Femoral artery] O2 Saturation 100 100 97 If not protocol : Oxygen Flow, liters/minute 03/18/24 03/18/24 03/18/24 17:35 18:00 19:00 Temperature Heart Rate 111 H Heart Rate [ 85 80 109 H Monitoring electrodes] Respiratory 23 24 38 H Rate Blood Pressure 139/81 H 132/82 H 172/97 H [Right Femoral artery] O2 Saturation 95 95 94 If not protocol 4 4 4 : Oxygen Flow, liters/minute 03/18/24 03/18/24 03/18/24 19:15 19:20 19:24 Temperature Heart Rate Heart Rate [ 116 H 112 H 111 H Monitoring electrodes] Respiratory 39 H 42 H 40 H Rate Blood Pressure 128/80 151/88 H 167/89 H [Right Femoral artery] O2 Saturation 97 97 98 If not protocol 4 4 : Oxygen Flow, liters/minute 03/18/24 03/18/24 03/18/24 19:30 19:35 20:00 Temperature 36.3 C L Heart Rate 114 H Heart Rate [ 112 H 100 Monitoring electrodes] Respiratory 36 H 34 H Rate Blood Pressure 163/82 H 141/89 H [Right Femoral artery] O2 Saturation 98 97 If not protocol 4 : Oxygen Flow, liters/minute 03/18/24 03/18/24 03/18/24 21:00 21:29 22:00 Temperature Heart Rate 89 Heart Rate [ 87 84 Monitoring electrodes] Respiratory 29 H 33 H Rate Blood Pressure 141/84 H 132/79 H [Right Femoral artery] O2 Saturation 99 99 If not protocol : Oxygen Flow, liters/minute 03/18/24 03/19/24 03/19/24 23:00 00:00 01:00 Temperature 35.7 C L 36.2 C L Heart Rate 78 Heart Rate [ 78 78 84 Monitoring electrodes] Respiratory 28 H 25 H 21 Rate Blood Pressure 128/73 132/75 H 140/90 H [Right Femoral artery] O2 Saturation 100 100 100 If not protocol 6 : Oxygen Flow, liters/minute 03/19/24 03/19/24 03/19/24 02:00 02:27 02:34 Temperature Heart Rate 95 95 Heart Rate [ 92 Monitoring electrodes] Respiratory 27 H 34 H Rate Blood Pressure 142/87 H [Right Femoral artery] O2 Saturation 99 If not protocol 6 : Oxygen Flow, liters/minute 0803/19/24 03/19/24 03:00 04:00 04:09 Temperature 36.6 C Heart Rate 79 Heart Rate [ 84 79 Monitoring electrodes] Respiratory 28 H 22 Rate Blood Pressure 128/71 126/72 [Right Femoral artery] O2 Saturation 98 99 If not protocol 6 : Oxygen Flow, liters/minute 03/19/24 03/19/24 03/19/24 05:00 05:34 06:00 Temperature 36.6 C Heart Rate 92 Heart Rate [ 86 80 Monitoring electrodes] Respiratory 30 H 25 H Rate Blood Pressure 143/93 H 132/79 H [Right Femoral artery] O2 Saturation 99 99 If not protocol 6 : Oxygen Flow, liters/minute 03/19/24 03/19/24 03/19/24 07:00 07:30 07:37 Temperature Heart Rate 87 Heart Rate [ 79 84 Monitoring electrodes] Respiratory 21 26 H Rate Blood Pressure 124/79 136/84 H [Right Femoral artery] O2 Saturation 100 98 If not protocol : Oxygen Flow, liters/minute Oxygen O2 Source BIPAP I&O (Last 24 Hrs): Intake and Output Totals x24h 03/17/24 03/18/24 03/19/24 23:59 23:59 23:59 Intake Total 4382.324 4745.671 1467.54 Output Total 847 1215 265 Balance 3535.324 3530.671 1202.54 - Results Results: Laboratory Results WBC 13.7 x10^3/uL (4.8-10.8) H 03/19/24 05:06 RBC 3.56 10^6/uL (4.20-5.40) L 03/19/24 05:06 Hgb 11.1 g/dL (12.0-16.0) L 03/19/24 05:06 Hct 34.8 % (37.0-47.0) L 03/19/24 05:06 MCV 97.8 fL (81.0-99.0) 03/19/24 05:06 MCH 31.2 pg (27.0-31.0) H 03/19/24 05:06 MCHC 31.9 g/dL (32.0-36.0) L 03/19/24 05:06 RDW 15.1 % (12.0-15.0) H 03/19/24 05:06 Plt Count 301 10^3/uL (130-450) 03/19/24 05:06 MPV 10.0 fL (7.9-10.8) 03/19/24 05:06 Neut # (Auto) 7.2 10^3/uL (1.5-6.6) H 03/16/24 10:50 Lymph # (Auto) 1.2 10^3/uL (1.5-3.5) L 03/16/24 10:50 [place] # (Auto) 0.5 10^3/uL (0.0-1.0) 03/16/24 10:50 Eos # (Auto) 0.0 10^3/uL (0.0-0.7) 03/16/24 10:50 Baso # (Auto) 0.1 10^3/uL (0.0-0.1) 03/16/24 10:50 Absolute Nucleated RBC 0.00 x10^3/uL 03/16/24 10:50 Nucleated RBC % 0.0 /100WBC 03/16/24 10:50 Manual Slide Review Indicated 03/16/24 10:50 RBC Morph Micro Appear 1+ ANISOCYTOSIS (NORMAL) 03/16/24 10:50 Bld Gas Analysis Time 1145 03/16/24 11:45 Sample Site RIGHT RADIAL 03/16/24 11:45 ABG pH 7.28 (7.35-7.45) L 03/16/24 11:45 ABG pCO2 45 mmHg (34-45) 03/16/24 11:45 ABG pO2 98 mmHg (80-100) 03/16/24 11:45 ABG HCO3 20.6 mmol/L (22.0-26.0) L 03/16/24 11:45 ABG Total CO2 22.0 MMOL/L (21.0-29.0) 03/16/24 11:45 ABG O2 Saturation 96 % (94-98) 03/16/24 11:45 ABG Base Excess -5.9 mmol/L (-2.0-3.0) L 03/16/24 11:45 Yohannes Test POSITIVE 03/16/24 11:45 VBG pH 7.352 (7.31-7.41) 03/19/24 05:06 VBG pCO2 48.4 mmHg (41-51) 03/18/24 20:40 VBG pO2 105.6 mmHg (25-47) H 03/18/24 20:40 VBG HCO3 14.3 mmol/L (23-28) L 03/18/24 20:40 VBG Total CO2 15.8 mmol/L (24-29) L 03/18/24 20:40 VBG O2 Saturation 95.9 % (60-80) H 03/18/24 20:40 VBG Base Excess -15.2 mmol/L (-2 - +2) L 03/18/24 20:40 Ionized Calcium 0.94 mmol/L (1.15-1.33) L 03/19/24 05:06 Respiration Rate 16 b/min 03/16/24 11:45 O2 Delivery Device MECH VENT 03/16/24 11:45 Vent Mode SIMV 03/16/24 11:45 FiO2 50.00 03/16/24 11:45 Tidal Volume 400 mL 03/16/24 11:45 PEEP 5 cmH2O 03/16/24 11:45 Pressure Support Vent 8 cmH2O 03/16/24 11:45 Sodium 143 mmol/L (135-145) 03/19/24 05:06 Potassium 4.0 mmol/L (3.5-4.5) 03/19/24 05:06 Chloride 112 mmol/L (101-111) H 03/19/24 05:06 Carbon Dioxide 22 mmol/L (21-32) 03/19/24 05:06 Anion Gap 9.0 (6-13) 03/19/24 05:06 BUN 25 mg/dL (6-20) H 03/19/24 05:06 Creatinine 0.6 mg/dL (0.6-1.3) 03/19/24 05:06 Estimated GFR (MDRD) 101 (>89) 03/19/24 05:06 Glucose 208 mg/dL (74-104) H 03/19/24 05:06 Lactic Acid 1.1 mmol/L (0.5-2.2) 03/17/24 09:01 Calcium 7.4 mg/dL (8.5-10.3) L 03/19/24 05:06 Phosphorus 3.0 mg/dL (2.5-5.0) 03/19/24 05:06 Magnesium 2.0 mg/dL (1.7-2.3) 03/19/24 05:06 Total Bilirubin 0.3 mg/dL (0.2-1.0) 03/19/24 05:06 Direct Bilirubin 0.23 mg/dL (0.03-0.18) H 03/17/24 04:25 AST 362 IU/L (10-42) H 03/19/24 05:06 ALT 364 IU/L (10-60) H 03/19/24 05:06 Alkaline Phosphatase 49 IU/L (42-121) 03/19/24 05:06 Troponin I High Sens 499.9 ng/L (2.3-14.8) H* 03/19/24 05:06 Total Protein 5.4 g/dL (6.4-8.9) L 03/19/24 05:06 Albumin 2.9 g/dL (3.2-5.5) L 03/19/24 05:06 Globulin 2.5 g/dL (2.1-4.2) 03/19/24 05:06 Albumin/Globulin Ratio 1.2 (1.0-2.2) 03/19/24 05:06 Urine Color YELLOW 03/19/24 05:00 Urine Clarity CLEAR (CLEAR) 03/19/24 05:00 Urine pH 6.0 PH (5.0-7.5) 03/19/24 05:00 Ur Specific [place] 1.025 (1.002-1.030) 03/19/24 05:00 Urine Protein TRACE mg/dL (NEGATIVE) 03/19/24 05:00 Urine Glucose (UA) NEGATIVE mg/dL (NEGATIVE) 03/19/24 05:00 Urine Ketones NEGATIVE mg/dL (NEGATIVE) 03/19/24 05:00 Urine Occult Blood LARGE (NEGATIVE) H 03/19/24 05:00 Urine Nitrite NEGATIVE (NEGATIVE) 03/19/24 05:00 Urine Bilirubin NEGATIVE (NEGATIVE) 03/19/24 05:00 Urine Urobilinogen 0.2 (NORMAL) E.U./dL (NORMAL) 03/19/24 05:00 Ur Leukocyte Esterase NEGATIVE (NEGATIVE) 03/19/24 05:00 Urine RBC TNTC /HPF (0-5) H 03/19/24 05:00 Urine WBC 0-3 /HPF (0-5) 03/19/24 05:00 Ur Squamous Epith Cells RARE Squamous (<= Few) 03/19/24 05:00 Urine Bacteria Rare /HPF (None Seen) 03/19/24 05:00 Urine Yeast PRESENT 03/19/24 05:00 Ur Microscopic Review INDICATED 03/19/24 05:00 Nasal Adenovirus (PCR) NOT DETECTED 03/16/24 11:07 Nasal B. parapertussis DNA (PCR) NOT DETECTED 03/16/24 11:07 Nasal Coronavir 229E PCR NOT DETECTED 03/16/24 11:07 Nasal Coronavir HKU1 PCR NOT DETECTED 03/16/24 11:07 Nasal Coronavir NL63 PCR NOT DETECTED 03/16/24 11:07 Nasal Coronavir OC43 PCR NOT DETECTED 03/16/24 11:07 Nasal Enterovir/Rhinovir PCR DETECTED A 03/16/24 11:07 Nasal Influenza B PCR NOT DETECTED 03/16/24 11:07 Nasal Influenza A PCR NOT DETECTED 03/16/24 11:07 Nasal Parainfluen 1 PCR NOT DETECTED 03/16/24 11:07 Nasal Parainfluen 2 PCR NOT DETECTED 03/16/24 11:07 Nasal Parainfluen 3 PCR NOT DETECTED 03/16/24 11:07 Nasal Parainfluen 4 PCR NOT DETECTED 03/16/24 11:07 Nasal RSV (PCR) NOT DETECTED 03/16/24 11:07 Nasal Screen MRSA (PCR) NEGATIVE (NEGATIVE) 03/16/24 14:20 Nasal B.pertussis DNA PCR NOT DETECTED 03/16/24 11:07 Nasal C.pneumoniae (PCR) NOT DETECTED 03/16/24 11:07 Viraj Human Metapneumo PCR NOT DETECTED 03/16/24 11:07 Nasal M.pneumoniae (PCR) NOT DETECTED 03/16/24 11:07 Nasal SARS-CoV-2 (PCR) NOT DETECTED 03/16/24 11:07
[2024-03-19] MEDS: POTASSIUM CHLORIDE INJ 40 MEQ in LACTATED RINGERS 1,000 ML IV SCH (09:04)
[2024-03-19] MEDS: SODIUM CHLORIDE 0.9% 500 ML IV ONE (10:30)
[2024-03-19] MEDS ORDERED: SODIUM CHLORIDE 0.9% 500 ML IV ONE (10:33)
[2024-03-19] MEDS: INSULIN REGULAR, HUMAN 300 UNIT/3 ML PEN SUBQ SCH (12:27)
[2024-03-19] MEDS ORDERED: MORPHINE SOL 10 MG/0.5 ML ORAL SYRINGE SL PRN (12:35)
[2024-03-19] MEDS ORDERED: ONDANSETRON 4 MG/2 ML VIAL IVP PRN (12:35)
[2024-03-19] MEDS ORDERED: CARBOXYMETHYLCELLULOSE OPHTH DROPS EACHEYE PRN (12:35)
[2024-03-19] MEDS ORDERED: MORPHINE 2 MG/ML CARPUJECT IVP PRN (12:35)
[2024-03-19] MEDS ORDERED: MINERAL OIL/PETROLAT OPHTH OINT EACHEYE PRN (12:35)
[2024-03-19] MEDS: HALOPERIDOL 5 MG/ML VIAL IVP PRN (12:51)
[2024-03-19] MEDS: MORPHINE INJ 100 MG in SODIUM CHLORIDE 0.9% 100ML 90 ML IV SCH (13:53)
[2024-03-19] MEDS: GLYCOPYRROLATE 1 MG/5 ML VIAL SUBQ PRN (14:17)
[2024-03-19 14:44] VITALS: BP 177/88
--- NOTE | 2024-03-19 15:11 | PROVIDER PROGRESS NOTE ---
Assessment/Plan - Problem List (1) Acute respiratory failure with hypoxemia Assessment/Plan: Patient on comfort care. See goals of care, counseling/discussion below. (2) Aspiration into airway Conclusion/Plan: Patient on comfort care. See goals of care, counseling/discussion below. (3) Rhinovirus infection Conclusion/Plan: Patient on comfort care. See goals of care, counseling/discussion below. (4) Multiple sclerosis Conclusion/Plan: Patient on comfort care. See goals of care, counseling/discussion below. (5) NSTEMI (non-ST elevated myocardial infarction) Conclusion/Plan: Patient on comfort care. See goals of care, counseling/discussion below. (6) COPD with exacerbation Conclusion/Plan: Patient on comfort care. See goals of care, counseling/discussion below. (7) Goals of care, counseling/discussion Conclusion/Plan: Patient's clinical condition declined this morning. Goals of care were discussed with patient's , Mark and daughter. Michelle is no longer competent to make her own decisions. They report that she has stated multiple times in the past that she would not want to have a prolonged course of artificial life support. Her overall clinical condition has significantly declined over the last year and after some discussion, they wish to proceed with comfort care measures. Comfort care orders have been initiated. All orders for active treatment of her underlying problems have been discontinues - Current Meds Current Meds: Current Medications Generic Name Dose Route Start Last Admin Trade Name Freq PRN Reason Stop Dose Admin Albuterol/Ipratropium 3 ml 03/17/24 00:01 03/19/24 11:50 Ipratropium/Albuterol 3 Ml Neb INH Not Given RTQ4H JAY Fentanyl 1 patch 03/17/24 17:00 03/17/24 17:30 Fentanyl 12 Mcg Patch TOP 1 patch Q3D JAY Administration Glycopyrrolate 0.2 mg 03/19/24 12:35 03/19/24 14:17 Glycopyrrolate 1 Mg/5 Ml Vial SUBQ 0.2 mg Q4H PRN Administration Excessive secretions Haloperidol 0.5 mg 03/19/24 12:35 03/19/24 12:51 Haloperidol 5 Mg/Ml Vial IVP 0.5 mg Q6H PRN Administration Nausea / Vomiting Esmolol HCl 2.5 gm in 250 mls @ 13.2 mls/hr 03/17/24 09:00 03/19/24 08:42 Brevibloc IV 0.2 mg/kg/min .[id number] JAY 52.8 mls/hr Administration Protocol 0.05 MG/KG/MIN Nitroglycerin 50 mg in 250 mls @ 1.5 mls/hr 03/17/24 19:00 03/19/24 10:13 Nitroglycerin IV 0 mcg/min .Q72H JAY 0 mls/hr Titration Protocol 5 MCG/MIN Morphine Sulfate 100 mg/ 100 mls @ 2 mls/hr 03/19/24 13:00 03/19/24 15:06 Sodium Chloride IV 5 mg/hr .Q50H JAY 5 mls/hr Titration Protocol 2 MG/HR Lorazepam 1 mg 03/19/24 02:17 03/19/24 13:10 Lorazepam 2 Mg/Ml Vial IVP 1 mg Q2H PRN Administration Anxiety Methylprednisolone 40 mg 03/18/24 20:00 03/18/24 20:36 Methylprednisolone Succinate 40 Mg/Ml Vial IVP 03/19/24 19:59 40 mg ONCE JAY Administration Sodium Chloride 10 ml 03/16/24 17:00 03/19/24 09:07 Sodium Chloride Flush 0.9% 10 Ml Syringe IVP 10 ml 0100,0900,1700 JAY Administration - Lab Result Fish Bone Diagrams: 03/19/24 05:06 03/19/24 05:06 - Additional Planning My Orders: My Active Orders 03/18/24 20:00 methylPREDNISolone SUCCINATE [SOLU-Medrol (40MG VIAL)] 40 mg IVP ONCE 03/19/24 12:35 Comfort Care [RC] QSHIFT Vital Signs [RC] PRN Carboxymethylcellulose 1% Opht [Refresh 1% Ophth Drops] 1 drops EACHEYE QID CO N Glycopyrrolate [Robinul] 0.2 mg SUBQ Q4H PRN Haloperidol Inj [Haldol Inj] 0.5 mg IVP Q6H PRN Mineral Oil/Petrola Ophth Oint [Lubrifresh Pm Ophth Oint] 1 applic EACHEYE QPM PRN Morphine Inj (Carpuject) [Morphine (Carpuject)] 2 mg IVP Q1HR PRN Morphine Oral Soln [Roxanol] 10 mg SL Q2HR PRN Ondansetron Inj [Zofran Inj] 4 mg IVP Q8H PRN 03/19/24 12:36 NPO [DIET] 03/19/24 13:00 Sodium Chloride 0.9% 100Ml [Normal Saline 0.9% 100Ml] 90 ml Morphine Inj [Morphine 10Mg Vial] 100 mg IV 2 mg/hr Subjective - Subjective Patient Reports: Other (Intermittently alert. Not able to speak in full sentences. Remains bi-level dependent.) Objective Vital Signs: Vital Signs - 24 hr 03/18/24 03/18/24 03/18/24 16:00 17:14 17:35 Temperature 36.9 C Heart Rate Heart Rate [ 74 76 85 Monitoring electrodes] Respiratory 17 24 23 Rate Blood Pressure 113/84 H 129/74 139/81 H [Right Femoral artery] O2 Saturation 100 97 95 If not protocol 4 : Oxygen Flow, liters/minute 03/18/24 03/18/24 03/18/24 18:00 19:00 19:15 Temperature Heart Rate 111 H Heart Rate [ 80 109 H 116 H Monitoring electrodes] Respiratory 24 38 H 39 H Rate Blood Pressure 132/82 H 172/97 H 128/80 [Right Femoral artery] O2 Saturation 95 94 97 If not protocol 4 4 4 : Oxygen Flow, liters/minute 03/18/24 03/18/24 03/18/24 19:20 19:24 19:30 Temperature Heart Rate 114 H Heart Rate [ 112 H 111 H Monitoring electrodes] Respiratory 42 H 40 H Rate Blood Pressure 151/88 H 167/89 H [Right Femoral artery] O2 Saturation 97 98 If not protocol 4 4 : Oxygen Flow, liters/minute 03/18/24 03/18/24 03/18/24 19:35 20:00 21:00 Temperature 36.3 C L Heart Rate Heart Rate [ 112 H 100 87 Monitoring electrodes] Respiratory 36 H 34 H 29 H Rate Blood Pressure 163/82 H 141/89 H 141/84 H [Right Femoral artery] O2 Saturation 98 97 99 If not protocol : Oxygen Flow, liters/minute 03/18/24 03/18/24 03/18/24 21:29 22:00 23:00 Temperature Heart Rate 89 Heart Rate [ 84 78 Monitoring electrodes] Respiratory 33 H 28 H Rate Blood Pressure 132/79 H 128/73 [Right Femoral artery] O2 Saturation 99 100 If not protocol : Oxygen Flow, liters/minute 03/19/24 03/19/24 03/19/24 00:00 01:00 02:00 Temperature 35.7 C L 36.2 C L Heart Rate 78 Heart Rate [ 78 84 92 Monitoring electrodes] Respiratory 25 H 21 27 H Rate Blood Pressure 132/75 H 140/90 H 142/87 H [Right Femoral artery] O2 Saturation 100 100 99 If not protocol 6 : Oxygen Flow, liters/minute 03/19/24 03/19/24 03/19/24 02:27 02:34 03:00 Temperature 36.6 C Heart Rate 95 95 Heart Rate [ 84 Monitoring electrodes] Respiratory 34 H 28 H Rate Blood Pressure 128/71 [Right Femoral artery] O2 Saturation 98 If not protocol 6 : Oxygen Flow, liters/minute 03/19/24 03/19/24 03/19/24 04:00 04:09 05:00 Temperature 36.6 C Heart Rate 79 Heart Rate [ 79 86 Monitoring electrodes] Respiratory 22 30 H Rate Blood Pressure 126/72 143/93 H [Right Femoral artery] O2 Saturation 99 99 If not protocol 6 : Oxygen Flow, liters/minute 03/19/24 03/19/24 03/19/24 05:34 06:00 07:00 Temperature Heart Rate 92 Heart Rate [ 80 79 Monitoring electrodes] Respiratory 25 H 21 Rate Blood Pressure 132/79 H 124/79 [Right Femoral artery] O2 Saturation 99 100 If not protocol 6 : Oxygen Flow, liters/minute 03/19/24 03/19/24 03/19/24 07:30 07:37 08:00 Temperature Heart Rate 87 Heart Rate [ 84 106 H Monitoring electrodes] Respiratory 26 H 36 H Rate Blood Pressure 136/84 H 159/105 H [Right Femoral artery] O2 Saturation 98 95 If not protocol : Oxygen Flow, liters/minute 03/19/24 03/19/24 03/19/24 08:15 09:00 09:13 Temperature 35.8 C L Heart Rate Heart Rate [ 88 94 86 Monitoring electrodes] Respiratory 28 H 36 H 32 H Rate Blood Pressure 139/84 H 167/97 H 134/73 H [Right Femoral artery] O2 Saturation 94 95 97 If not protocol : Oxygen Flow, liters/minute 03/19/24 03/19/24 03/19/24 10:00 10:05 10:10 Temperature Heart Rate Heart Rate [ 75 80 74 Monitoring electrodes] Respiratory 30 H 32 H 36 H Rate Blood Pressure 92/71 89/73 L 93/62 [Right Femoral artery] O2 Saturation 94 92 89 L If not protocol : Oxygen Flow, liters/minute 03/19/24 03/19/24 03/19/24 10:20 10:25 10:30 Temperature Heart Rate Heart Rate [ 84 80 82 Monitoring electrodes] Respiratory 37 H 38 H 31 H Rate Blood Pressure 94/51 L 81/30 L 67/45 L [Right Femoral artery] O2 Saturation 87 L 85 L 72 L If not protocol : Oxygen Flow, liters/minute 03/19/24 03/19/24 03/19/24 10:40 11:00 11:15 Temperature Heart Rate Heart Rate [ 98 106 H 103 H Monitoring electrodes] Respiratory 33 H 34 H 30 H Rate Blood Pressure 79/48 L 110/35 L 118/36 L [Right Femoral artery] O2 Saturation 76 L 92 98 If not protocol : Oxygen Flow, liters/minute 03/19/24 03/19/24 03/19/24 11:56 12:00 12:30 Temperature Heart Rate 102 H Heart Rate [ 109 H 108 H Monitoring electrodes] Respiratory 35 H 31 H Rate Blood Pressure 147/73 H 149/76 H [Right Femoral artery] O2 Saturation 100 98 If not protocol : Oxygen Flow, liters/minute 03/19/24 03/19/24 03/19/24 12:35 14:00 14:30 Temperature Heart Rate Heart Rate [ 110 H 116 H Monitoring electrodes] Respiratory 33 H 35 H 36 H Rate Blood Pressure 177/88 H [Right Femoral artery] O2 Saturation 90 L If not protocol 2 : Oxygen Flow, liters/minute Oxygen O2 Source BIPAP I&O (Last 24 Hrs): Intake and Output Totals x24h 03/17/24 03/18/24 03/19/24 23:59 23:59 23:59 Intake Total 4382.324 4745.671 2120.060 Output Total 847 1215 395 Balance 3535.324 3530.671 1725.060 General: Mild distress Neck: No JVD Neuro: Other (Moving all 4 extremities) Cardiovascular: Other (+S1, S2. No extra heart sounds.) Respiratory: Other (Fair air exchange in all lung olivares. No crackles. Positive bibasilar wheezing bilaterally.) Abdomen: Other (Soft, nontender. Nodistended. Hypoactive bowel sounds.) Extremities: No cyanosis, No edema Skin: No rashes - Results Results: Laboratory Results WBC 13.7 x10^3/uL (4.8-10.8) H 03/19/24 05:06 RBC 3.56 10^6/uL (4.20-5.40) L 03/19/24 05:06 Hgb 11.1 g/dL (12.0-16.0) L 03/19/24 05:06 Hct 34.8 % (37.0-47.0) L 03/19/24 05:06 MCV 97.8 fL (81.0-99.0) 03/19/24 05:06 MCH 31.2 pg (27.0-31.0) H 03/19/24 05:06 MCHC 31.9 g/dL (32.0-36.0) L 03/19/24 05:06 RDW 15.1 % (12.0-15.0) H 03/19/24 05:06 Plt Count 301 10^3/uL (130-450) 03/19/24 05:06 MPV 10.0 fL (7.9-10.8) 03/19/24 05:06 Neut # (Auto) 7.2 10^3/uL (1.5-6.6) H 03/16/24 10:50 Lymph # (Auto) 1.2 10^3/uL (1.5-3.5) L 03/16/24 10:50 [place] # (Auto) 0.5 10^3/uL (0.0-1.0) 03/16/24 10:50 Eos # (Auto) 0.0 10^3/uL (0.0-0.7) 03/16/24 10:50 Baso # (Auto) 0.1 10^3/uL (0.0-0.1) 03/16/24 10:50 Absolute Nucleated RBC 0.00 x10^3/uL 03/16/24 10:50 Nucleated RBC % 0.0 /100WBC 03/16/24 10:50 Manual Slide Review Indicated 03/16/24 10:50 RBC Morph Micro Appear 1+ ANISOCYTOSIS (NORMAL) 03/16/24 10:50 Bld Gas Analysis Time 1145 03/16/24 11:45 Sample Site RIGHT RADIAL 03/16/24 11:45 ABG pH 7.28 (7.35-7.45) L 03/16/24 11:45 ABG pCO2 45 mmHg (34-45) 03/16/24 11:45 ABG pO2 98 mmHg (80-100) 03/16/24 11:45 ABG HCO3 20.6 mmol/L (22.0-26.0) L 03/16/24 11:45 ABG Total CO2 22.0 MMOL/L (21.0-29.0) 03/16/24 11:45 ABG O2 Saturation 96 % (94-98) 03/16/24 11:45 ABG Base Excess -5.9 mmol/L (-2.0-3.0) L 03/16/24 11:45 Yohannes Test POSITIVE 03/16/24 11:45 VBG pH 7.352 (7.31-7.41) 03/19/24 05:06 VBG pCO2 48.4 mmHg (41-51) 03/18/24 20:40 VBG pO2 105.6 mmHg (25-47) H 03/18/24 20:40 VBG HCO3 14.3 mmol/L (23-28) L 03/18/24 20:40 VBG Total CO2 15.8 mmol/L (24-29) L 03/18/24 20:40 VBG O2 Saturation 95.9 % (60-80) H 03/18/24 20:40 VBG Base Excess -15.2 mmol/L (-2 - +2) L 03/18/24 20:40 Ionized Calcium 0.94 mmol/L (1.15-1.33) L 03/19/24 05:06 Respiration Rate 16 b/min 03/16/24 11:45 O2 Delivery Device MECH VENT 03/16/24 11:45 Vent Mode SIMV 03/16/24 11:45 FiO2 50.00 03/16/24 11:45 Tidal Volume 400 mL 03/16/24 11:45 PEEP 5 cmH2O 03/16/24 11:45 Pressure Support Vent 8 cmH2O 03/16/24 11:45 Sodium 143 mmol/L (135-145) 03/19/24 05:06 Potassium 4.0 mmol/L (3.5-4.5) 03/19/24 05:06 Chloride 112 mmol/L (101-111) H 03/19/24 05:06 Carbon Dioxide 22 mmol/L (21-32) 03/19/24 05:06 Anion Gap 9.0 (6-13) 03/19/24 05:06 BUN 25 mg/dL (6-20) H 03/19/24 05:06 Creatinine 0.6 mg/dL (0.6-1.3) 03/19/24 05:06 Estimated GFR (MDRD) 101 (>89) 03/19/24 05:06 Glucose 208 mg/dL (74-104) H 03/19/24 05:06 POC Whole Bld Glucose 170 mg/dL (70 - 100) H 03/19/24 11:45 Lactic Acid 1.1 mmol/L (0.5-2.2) 03/17/24 09:01 Calcium 7.4 mg/dL (8.5-10.3) L 03/19/24 05:06 Phosphorus 3.0 mg/dL (2.5-5.0) 03/19/24 05:06 Magnesium 2.0 mg/dL (1.7-2.3) 03/19/24 05:06 Total Bilirubin 0.3 mg/dL (0.2-1.0) 03/19/24 05:06 Direct Bilirubin 0.23 mg/dL (0.03-0.18) H 03/17/24 04:25 AST 362 IU/L (10-42) H 03/19/24 05:06 ALT 364 IU/L (10-60) H 03/19/24 05:06 Alkaline Phosphatase 49 IU/L (42-121) 03/19/24 05:06 Troponin I High Sens 499.9 ng/L (2.3-14.8) H* 03/19/24 05:06 Total Protein 5.4 g/dL (6.4-8.9) L 03/19/24 05:06 Albumin 2.9 g/dL (3.2-5.5) L 03/19/24 05:06 Globulin 2.5 g/dL (2.1-4.2) 03/19/24 05:06 Albumin/Globulin Ratio 1.2 (1.0-2.2) 03/19/24 05:06 Urine Color YELLOW 03/19/24 05:00 Urine Clarity CLEAR (CLEAR) 03/19/24 05:00 Urine pH 6.0 PH (5.0-7.5) 03/19/24 05:00 Ur Specific [place] 1.025 (1.002-1.030) 03/19/24 05:00 Urine Protein TRACE mg/dL (NEGATIVE) 03/19/24 05:00 Urine Glucose (UA) NEGATIVE mg/dL (NEGATIVE) 03/19/24 05:00 Urine Ketones NEGATIVE mg/dL (NEGATIVE) 03/19/24 05:00 Urine Occult Blood LARGE (NEGATIVE) H 03/19/24 05:00 Urine Nitrite NEGATIVE (NEGATIVE) 03/19/24 05:00 Urine Bilirubin NEGATIVE (NEGATIVE) 03/19/24 05:00 Urine Urobilinogen 0.2 (NORMAL) E.U./dL (NORMAL) 03/19/24 05:00 Ur Leukocyte Esterase NEGATIVE (NEGATIVE) 03/19/24 05:00 Urine RBC TNTC /HPF (0-5) H 03/19/24 05:00 Urine WBC 0-3 /HPF (0-5) 03/19/24 05:00 Ur Squamous Epith Cells RARE Squamous (<= Few) 03/19/24 05:00 Urine Bacteria Rare /HPF (None Seen) 03/19/24 05:00 Urine Yeast PRESENT 03/19/24 05:00 Ur Microscopic Review INDICATED 03/19/24 05:00 Nasal Adenovirus (PCR) NOT DETECTED 03/16/24 11:07 Nasal B. parapertussis DNA (PCR) NOT DETECTED 03/16/24 11:07 Nasal Coronavir 229E PCR NOT DETECTED 03/16/24 11:07 Nasal Coronavir HKU1 PCR NOT DETECTED 03/16/24 11:07 Nasal Coronavir NL63 PCR NOT DETECTED 03/16/24 11:07 Nasal Coronavir OC43 PCR NOT DETECTED 03/16/24 11:07 Nasal Enterovir/Rhinovir PCR DETECTED A 03/16/24 11:07 Nasal Influenza B PCR NOT DETECTED 03/16/24 11:07 Nasal Influenza A PCR NOT DETECTED 03/16/24 11:07 Nasal Parainfluen 1 PCR NOT DETECTED 03/16/24 11:07 Nasal Parainfluen 2 PCR NOT DETECTED 03/16/24 11:07 Nasal Parainfluen 3 PCR NOT DETECTED 03/16/24 11:07 Nasal Parainfluen 4 PCR NOT DETECTED 03/16/24 11:07 Nasal RSV (PCR) NOT DETECTED 03/16/24 11:07 Nasal Screen MRSA (PCR) NEGATIVE (NEGATIVE) 03/16/24 14:20 Nasal B.pertussis DNA PCR NOT DETECTED 03/16/24 11:07 Nasal C.pneumoniae (PCR) NOT DETECTED 03/16/24 11:07 Viraj Human Metapneumo PCR NOT DETECTED 03/16/24 11:07 Nasal M.pneumoniae (PCR) NOT DETECTED 03/16/24 11:07 Nasal SARS-CoV-2 (PCR) NOT DETECTED 03/16/24 11:07
[2024-03-19 17:51] VITALS: O2SAT 88
--- NOTE | 2024-03-20 12:46 | DISCHARGE SUMMARY ---
Discharge Summary Admit Date: 03/16/24 Discharge Date: 03/20/24 Discharging Provider: Dr Dutton Code Status: Do Not Attempt Resuscitation Discharge Disposition: 20 - DIAGNOSES Admission Diagnoses: Acute respiratory failure with hypoxia Aspiration into airway Rhinovirus infection Multiple sclerosis NSTEMI COPD Discharge Diagnoses with Status of Each Condition: Acute respiratory failure with hypoxia Aspiration into airway Rhinovirus infection Multiple sclerosis NSTEMI COPD Condition for all diagnoses above are not applicable as the the patient has - HPI History of Present Illness: Michelle Encarnacion is a 64-year-old woman who presented to the emergency room with a chief complaint of shortness of breath. She has a past medical history significant for chronic pain, multiple sclerosis and chronic obstructive pulmonary disease. She reports that her dyspnea is worsened over the last 24 hours. Patient arrived by EMS service and was in significant respiratory distress upon arrival. She reported she wanted to be intubated and was intubated by emergency room physician. Per ER report she is DO NOT RESUSCITATE but does want to be intubated. Also per ER report she wants to have bronchodilators but does not wish to have any type of steroid at this time. Chest x-ray performed in the emergency room revealed bilateral opacities in the lower lobe. Troponin was elevated at 316.6. Lactic acid was 0.2 and white blo od cell count was 9K. Patient received ceftriaxone and azithromycin in the emergency room. - HOSPITAL COURSE Hospital Course: I, the discharging attending, did not have the pleasure to meet Mrs. Encarnacion prior to her expiration. She and makes prior to beginning his chest, and as such history is provided by chart review. Per progress notes from Dr Benites on 03/19: Patient's clinical condition declined this morning. Goals of care were discussed with patient's , Mark and daughter. Michelle is no longer competent to make her own decisions. They report that she has stated multiple times in the past that she would not want to have a prolonged course of artificial life support. Her overall clinical condition has significantly declined over the last year and after some discussion, they wish to proceed with comfort care measures. Comfort care orders have been initiated. All orders for active treatment of her underlying problems have been discontinues - ALLERGIES Allergies/Adverse Reactions: Allergies Allergy/AdvReac Type Severity Reaction Status Date / Time latex Allergy Severe Hives Verified 03/16/24 12:59 Sulfa (Sulfonamide Allergy Severe Hives Verified 03/16/24 12:59 Antibiotics) - MEDICATIONS Home Medications: Ambulatory Orders Medication Instructions Recorded Confirmed Estradiol 0.05 mg Patch [Vivelle] 1 each TOP Q7D 07/31/13 03/17/24 Fingolimod HCl [Gilenya] 0.5 mg PO DAILY 07/31/13 03/17/24 Tizanidine HCl 4 mg PO QID 07/31/13 03/17/24 Albuterol Sulf [Ventolin Hfa 1 - 2 puffs INH Q4HR PRN #1 gm 04/27/22 03/16/24 Inhaler] Fluticasone Propionate 2 puffs INH BID 03/16/24 03/16/24 [Fluticasone Propionate Hfa] HYDROmorphone [Dilaudid] 2 mg PO QID 03/16/24 03/16/24 Losartan [Cozaar] 1 tab PO DAILY 03/16/24 03/16/24 Metoprolol Succinate [Toprol Xl] 12.5 mg PO DAILY 03/16/24 03/16/24 Pregabalin 1 cap PO BID 03/16/24 03/16/24 Progesterone, Micronized 1 cap PO DAILY 03/16/24 03/16/24 [Prometrium] QUEtiapine [SEROquel] 250 mg PO HS 03/16/24 03/16/24 Tiotropium Br/Olodaterol HCl 2 puffs INH DAILY 03/16/24 03/16/24 [Stiolto Respimat Inhaler (60)] fentaNYL 12 MCG PATCH [Duragesic 1 patch TOP Q72H 03/17/24 03/17/24 12mcg patch] - LABS Result Diagrams: 03/19/24 05:06 03/19/24 05:06 - TIME SPENT Time Spent in Discharge (Minutes): 30
== END 2024-03-20 02:54 | disposition expired | DRG 208 ==
LOC: EDUNIT# → ED 10:34 → ICU 13:11
PROVIDERS: ADMIT Internal Medicine; ATTEND Family Medicine Sports Medicine
PROC: 0BH17EZ Insertion of Endotracheal Airway into Trachea, Via Natural or Artificial Opening (ICD-10-PCS; principal; 2024-03-16)
PROC: 5A1945Z Respiratory Ventilation, 24-96 Consecutive Hours (ICD-10-PCS; 2024-03-16)
DX: J96.00 Acute respiratory failure, unspecified whether with hypoxia or hypercapnia (principal); J18.9 Pneumonia, unspecified organism; J96.01 Acute respiratory failure with hypoxia; J69.0 Pneumonitis due to inhalation of food and vomit; J44.9 Chronic obstructive pulmonary disease, unspecified; R00.0 Tachycardia, unspecified; I21.4 Non-ST elevation (NSTEMI) myocardial infarction; E87.5 Hyperkalemia; R79.89 Other specified abnormal findings of blood chemistry; F17.200 Nicotine dependence, unspecified, uncomplicated; J44.0 Chronic obstructive pulmonary disease with (acute) lower respiratory infection; J44.1 Chronic obstructive pulmonary disease with (acute) exacerbation; G35 Multiple sclerosis; Z51.5 Encounter for palliative care; Z66 Do not resuscitate; Z79.891 Long term (current) use of opiate analgesic; G89.29 Other chronic pain; B34.8 Other viral infections of unspecified site
CPT/HCPCS: 31500; 36415; 36600; 51702; 71045; 80048; 80053; 80076; 81001; 82330; 82803; 83605; 83735; 84100; 84132; 84484; 85025; 85027; 87040; 87150; 87633; 93005; 93307; 94002; 94003; 94640; 94660; 94664; 96361; 96365; 96375; 99291; A9270; J1650; J2060; J7120; 81003